=== PATIENT | male | born 1930 | race African-American/Black ===

== ENCOUNTER 2017-04-20 17:57 | Inpatient (IN) | payer MEDICARE, OTHER ==
--- NOTE | ~2017-04-20 | CT72 ---
[facility] A Service of [facility] RADIOLOGY TEXT RESULTS PATIENT: INESSA RAMOS LOCATION: C5 555-01 : 30 UNIT #: [id number] AGE: [address]: Morena Ball MD SEX: M ORDER DR: [id number] [facility] [address] [facility]. [place], [place] [address] [id number] I MR#: [id number] Acc #: [id number] NAME: INESSA RAMOS : 1930 SEX: M STUDY DATE/TIME: 04/20/2017 18:05 UNIT: [facility] ROOM: [facility] STUDY DESCRIPTION: CT Head Wo Contrast Stroke Attending Physician: Morena Ball M.D. Ordering Physician: Ed Doctor [id number] [facility] Primary Care Physician: Primary Care Physician No MEDICAL IMAGING REPORT This report is preliminary unless electronic signature is present EXAM Head CT without contrast HISTORY Left-sided facial droop. Left-sided weakness and confusion, onset today. COMPARISON 11/16/2016. TECHNIQUE Axial images were obtained without contrast. This CT exam was performed with one or more of the following radiation dose reduction techniques: automatic exposure control, adjustment of mA and/or kV according to patient size, and iterative reconstruction. FINDINGS Generalized atrophy is noted. There are mild chronic ischemic changes around ventricles. There is no evidence of mass lesion, hemorrhage or edema. No midline shift is seen. Extraaxial structures are unremarkable. IMPRESSION Atrophy with chronic ischemic changes. No acute findings. Dictated by... Vik Sandoval M.D. THIS IS AN ELECTRONICALLY VERIFIED REPORT Vik Sandoval M.D. at 04/21/2017 4:29 PM RLF/pcl [facility] A Service [facility] RADIOLOGY TEXT RESULTS PATIENT: INESSA RAMOS LOCATION: C5 555-01 : 30 UNIT #: [id number] AGE: [address]: Morena Ball MD SEX: M ORDER DR: TD: 04/20/2017 20:26 JOB #: [id number] MEDICAL IMAGING REPORT Page 1 of 1 COPY
--- NOTE | ~2017-04-20 | DS ---
Unit #: [id number] #: [id number] Patient: INESSA RAMOS [id number] [address] [address] [id number] I MR#: [id number] NAME: INESSA RAMOS ROOM: 215 Age: 86 Sex: M Admission Date: 04/20/2017 : 1930 Discharge Date: Attending Physician: Morena Ball M.D. Primary Care Physician: No Primary Care Physician DISCHARGE SUMMARY DISCHARGE DIAGNOSES 1. Hypertensive crisis with uncontrolled hypertension. 2. Hypertensive encephalopathy. 3. Alzheimer dementia with severe behavioral changes and agitation during hospitalization course. 4. History of orthostatic hypotension and labile hypertension. 5. History of permanent pacemaker. 6. Peripheral vascular disease. 7. Chronic kidney disease, stage 2. 8. Prostate cancer. Previously treated hormonally. 9. Degenerative joint disease. 10. Gastroesophageal reflux disease. 11. History of iron deficiency anemia, chronic. CONSULTATIONS None. PROCEDURES None. DIAGNOSTIC TESTING IMAGING: CT head shows no acute changes. CT angio head and neck shows no evidence of vertebral or carotid dissection. Both carotid bifurcations 65% stenosis. Ultrasound of the extremities negative for DVT. LAB DATA: Sodium 140, potassium 4.5, creatinine 1.1. WBC 5.7, hemoglobin 11.9, platelets 169. ALLERGIES None. DISCHARGE MEDICATIONS 1. Tylenol 650 p.o. t.i.d. p.r.n. 2. Depakote 250 in the morning and 500 at bedtime. 3. Haldol 2 mg q.6 p.r.n. agitation. 4. Colace 200 p.o. b.i.d. 5. MiraLAX 17 grams p.o. daily. 6. Namenda 10 mg p.o. b.i.d. 7. Donepezil 10 mg daily. 8. Estradiol 0.1 mg transdermal every week. 9. Hydralazine 50 mg p.o. t.i.d. Unit #: [id number] #: [id number] Patient: INESSA RAMOS 10. Ferrous gluconate 324 p.o. daily. 11. Arctic Relief 3.5% gel applied topically b.i.d. 12. Aspirin 81 daily. 13. Nitroglycerin 0.4 sublingual p.r.n. chest pain. 14. Vitamin D 2,000 units daily. 15. Artificial Tears q.i.d. HOSPITALIZATION COURSE An 86 year old admitted because of hypertension. Hypertensive crisis with uncontrolled blood pressure. Patient was given IV Vasotec, Cardene drip and IV hydralazine. Currently blood pressure mildly elevated. I am going to increase his hydralazine. Patient needs close monitoring of his vitals at rehab. Mostly the hypertension could be from his agitation. Hypertensive encephalopathy. CAT scan negative for any acute CVA,. Currently resolved back to his baseline according to family. Alzheimer dementia with behavioral changes and agitation. Patient received IM Haldol. Continue with p.o. Haldol as needed secondary to Alzheimer dementia. DISCHARGE PLAN 1. Patient will be discharged to rehab. 2. Patient needs close monitoring of his vitals at rehab for his blood pressure checks. Dictated by... Joaquina Bell/baylee TD: 04/23/2017 10:23 JOB #: [id number] DISCHARGE SUMMARY Page 1 of 1 X Morena Ball MD X DISCHARGE SUMMARY
--- NOTE | ~2017-04-20 | CT24 ---
[facility] A Service of [facility] & [facility] RADIOLOGY TEXT RESULTS PATIENT: INESSA RAMOS LOCATION: [facility] : 30 UNIT #: [id number] AGE: [address]: Amarjit Chen MD SEX: M ORDER DR: [id number] [facility] [address] [facility]. [place], [place] [address] [id number] E MR#: [id number] Acc #: [id number] NAME: INESSA RAMOS : 1930 SEX: M STUDY DATE/TIME: 04/20/2017 18:19 UNIT: [facility] ROOM: STUDY DESCRIPTION: CT Angio Neck Stroke Ordering Physician: Parviz Simons M.D. MEDICAL IMAGING REPORT This report is preliminary unless electronic signature is present EXAM CTA head and neck HISTORY Refer below. FINDINGS Please refer to the CTA head report on the same date for complete details. Dictated by... Vik Bello Jr., M.D. THIS IS AN ELECTRONICALLY VERIFIED REPORT Vik Bello Jr., M.D. at 04/20/2017 10:25 PM ASIA/torrey TD: 04/20/2017 21:38 JOB #: [id number] MEDICAL IMAGING REPORT Page 1 of 1 COPY
--- NOTE | ~2017-04-20 | HP ---
Unit #: [id number] #: [id number] Patient: INESSA RAMOS [id number] [address] [address] [id number] I MR#: [id number] NAME: INESSA RAMOS ROOM: 765[address] Age: 86 Sex: M Admission Date: 04/20/2017 : 1930 Attending Physician: Tonie Lainez M.D. Primary Care Physician: Primary Care Physician No HISTORY AND PHYSICAL CHIEF COMPLAINT Possibly abnormal neuro exam, accelerated hypertension. HISTORY OF PRESENT ILLNESS This pleasant 86-year-old male with orthostatic hypotension and labile hypertension, peripheral vascular disease, dementia, permanent pacemaker insertion, was transferred from [facility] for possibly abnormal neurologic exam. Family is present and states that the patient does have a history of labile blood pressure and orthostatic hypotension, does not usually require antihypertensive medications. I am told that he was well until about 4:30 this afternoon when staff at [facility] felt that he had a right lower facial droop, some right arm weakness, bilateral leg weakness. Apparently, he complained of some shoulder pain as well. He presented to this emergency department at about 6 p.m. and really his neurologic examination at this time is fairly normal for someone with dementia, there is no right facial droop when the patient turned his head. He has equal strength throughout. He was also seen by the neurology nurse practitioner. However, his blood pressure was 210/160. He was given 1.25 mg of IV Vasotec without much improvement, started on a Cardene drip. His family states that he has required ER visits in the past for labile blood pressure but at times his blood pressure also runs low and he does have a history of orthostatic hypotension. In reviewing his MAR from the halfway, he is not taking antihypertensive medications. On a Cardene drip, his current blood pressure is 195/88. PAST MEDICAL HISTORY 1. Orthostatic hypotension and labile hypertension. 2. Permanent pacemaker. Family denies definite CAD. 3. Peripheral vascular disease. 4. Chronic kidney disease. 5. Prostate cancer previously treated hormonally. 6. DJD. 7. GERD. 8. Dementia with behavioral issues. 9. History of anemia. 10. Some sort of abdominal surgery. ALLERGIES No known drug allergies. SHELTER MEDICATIONS Unit #: [id number] #: [id number] Patient: INESSA RAMOS 1. Aspirin 81 mg daily. 2. P.r.n. Tylenol. 3. Ferrous sulfate 325 mg daily. 4. MiraLAX daily. 5. Depakote 250 q.a.m. 6. Depakote 500 mg q.p.m. 7. Namenda 10 mg b.i.d. 8. Stool softener 250 mg daily. 9. Aricept 10 mg h.s. 10. Vitamin D3 2000 units daily. 11. Skin care lotions. 12. Artificial Tears one drop both eyes q.i.d. p.r.n. 13. P.r.n. nitroglycerin. 14. Estradiol 0.1 mg patch each week. SOCIAL HISTORY The patient lives at [facility] under the care of Dr. Higgins. He is essentially a lifelong nonsmoker and does not drink alcohol. FAMILY HISTORY Noncontributory given patient's age. REVIEW OF SYSTEMS Difficult to obtain as patient himself is pleasantly confused. PHYSICAL EXAMINATION VITAL SIGNS: Temperature 97.7, pulse 66, blood pressure 210/160 now down to 195/88, O2 saturation 99% on room air. GENERAL: Pleasantly confused 86-year-old male who currently is in no acute distress. HEENT: Eyes PERRLA. Extraocular muscles are intact. Pharynx edentulous. NECK: Supple without adenopathy or thyromegaly. CHEST: Fairly clear on current exam. HEART: Normal S1, S2 with no definite murmur. ABDOMEN: Bowel sounds are present. Well-healed scar is noted. No hepatosplenomegaly or masses. EXTREMITIES: Mild left leg edema as compared to the right. Diminished pedal pulse on the left as compared to the right but no open sores, etc. NEUROLOGIC: Pleasantly confused. He is oriented to person. He has equal strength throughout. His cranial nerves are intact. DIAGNOSTIC STUDIES LABORATORY: Hematocrit 34.9 which appears to be this patient's baseline, MCV 82.2, normal white count and platelet count. INR 1.1. SMA-7 BUN 25. IMAGING: Head CT with atrophy and small vessel ischemic disease. CTA of head and neck show no cutoff or aneurysm. Plaque disease at both carotid bifurcations resulting in a 65% stenosis left ICA and 40% stenosis right ICA. Short segment approximately 40% stenosis of the mid M1 segment on the left side. CARDIOVASCULAR: EKG ventricular paced rhythm, rate 65. ASSESSMENT 1. Questionably abnormal neurologic exam. No evidence of CVA currently. Patient does have baseline dementia. 2. Accelerated hypertension in patient with labile blood pressures [facility] Unit #: [id number] #: [id number] Patient: INESSA RAMOS has a history of orthostatic hypotension per family. 3. Alzheimer dementia with behavioral issues. 4. Prostate cancer. 5. Status post permanent pacemaker insertion. 6. Chronic anemia. 7. Peripheral vascular disease. 8. Mild left leg edema. 9. Degenerative joint disease. PLAN 1. Gentle blood pressure control as patient has a history of labile blood pressures and orthostatic hypotension. 2. Check venous Dopplers of the legs. 3. Repeat labs in the morning. 4. Obtain prior records from [facility]. 5. Check urinalysis. Dictated by Joaquina Starkey/katarina TD: 04/20/2017 22:51 JOB #: [id number] HISTORY AND PHYSICAL Page 1 of 1 X Tonie Lainez MD X HISTORY AND PHYSICAL
--- NOTE | ~2017-04-20 | CT18 ---
[facility] A Service of [facility] RADIOLOGY TEXT RESULTS PATIENT: INESSA RAMOS LOCATION: [facility] : 30 UNIT #: [id number] AGE: [address]: Amarjit Chen MD SEX: M ORDER DR: [id number] [facility] [address] [facility] [place], [place] [address] [id number] E MR#: [id number] Acc #: [id number] NAME: INESSA RAMOS : 1930 SEX: M STUDY DATE/TIME: 04/20/2017 18:19 UNIT: [facility] ROOM: STUDY DESCRIPTION: CT Angio Head Stroke Ordering Physician: Parviz Simons M.D. MEDICAL IMAGING REPORT This report is preliminary unless electronic signature is present EXAM Head and neck CT angiogram 04/20 INDICATIONS Left-side facial droop. Left-sided weakness. Confusion. Started today. TECHNIQUE Axial images were obtained through the head and neck following IV contrast administration. 3-D reformats were obtained. This CT exam was performed with one or more of the following radiation dose reduction techniques: automatic exposure control, adjustment of mA and/or kV according to patient size, and iterative reconstruction. COMPARISON STUDIES No comparison CTA. FINDINGS There is plaque in both carotid bifurcations. Within the proximal right ICA, there is about 40% stenosis by NASCET criteria due to plaque. Within the proximal left ICA, there is about 65% stenosis by NASCET criteria due to atheromatous plaque. No carotid or vertebral dissection is identified. There is some plaque in both carotid siphons, but no stenosis is seen. Vertebral arteries are widely patent. There are codominant. Intracranially, no aneurysm is seen. There is no vascular malformation and there is no vessel cutoff. Within the mid-M1 segment on the left, there is about 40% short-segment stenosis by NASCET criteria, presumably secondary to some atherosclerotic disease. Overall, the distal M1 and proximal M2 branches on the left side are narrower in caliber than those on the right, presumably due to intracranial atherosclerotic disease. Major dural venous sinuses are patent. The brain demonstrates generalized [facility] A Service of [facility] RADIOLOGY TEXT RESULTS PATIENT: INESSA RAMOS LOCATION: [facility] #: [id number] : 30 UNIT #: [id number] AGE: [address]: Amarjit Chen MD SEX: M ORDER DR: mary. There is diffuse degenerative disease in the cervical spine. IMPRESSION 1. No evidence of vertebral or carotid dissection in the neck. 2. Plaque disease at both carotid bifurcations resulting in a 65% stenosis in the left ICA by NASCET criteria and a 40% stenosis in the right ICA by NASCET criteria. 3. Intracranially, no aneurysm or vessel cutoff is seen. There is no vascular malformation. 4. Short-segment approximately 40% narrowing by NASCET criteria in the mid-M1 segment on the left side. Distal M1 and proximal M2 branches on the left side are of smaller caliber than the similar vessels on the right side. This is presumably on the basis of atherosclerotic disease. Dictated by... Vik Bello Jr., M.D. THIS IS AN ELECTRONICALLY VERIFIED REPORT Vik Bello Jr., M.D. at 04/20/2017 10:24 PM ASIA/torrey TD: 04/20/2017 21:34 JOB #: [id number] MEDICAL IMAGING REPORT Page 1 of 1 COPY
--- NOTE | ~2017-04-20 | US84 ---
[id number] [facility] [address] [facility]. [place], [place] [address] [id number] I MR#: [id number] Acc #: [id number] NAME: INESSA RAMOS : 1930 SEX: M STUDY DATE/TIME: 04/21/2017 7:17 UNIT: [facility] ROOM: [facility] STUDY DESCRIPTION: US LE Veins Complete Camilo Stdy Attending Physician: Morena Ball M.D. Ordering Physician: Ed Doctor [id number] [facility] Primary Care Physician: Primary Care Physician No MEDICAL IMAGING REPORT This report is preliminary unless electronic signature is present EXAM Bilateral lower extremity venous duplex, 04/21/2017 HISTORY Bilateral lower extremity pain and swelling for 2 days. Evaluate for deep vein thrombosis. TECHNIQUE Venous ultrasound examination of both lower extremities was performed using grayscale, spectral Doppler and color flow Doppler imaging. FINDINGS The examination is negative. There is no evidence of deep venous thrombus from the groin to the lower calf bilaterally. Visualized greater saphenous veins are also patent. IMPRESSION Negative examination. No evidence of bilateral lower extremity deep venous thrombosis. Dictated by... Lyndon See M.D. THIS IS AN ELECTRONICALLY VERIFIED REPORT Lyndon See M.D. at 04/21/2017 4:30 PM Josh TD: 04/21/2017 09:30 JOB #: [id number] MEDICAL IMAGING REPORT Page 1 of 1 COPY
--- NOTE | ~2017-04-20 | EKG ---
PATIENT: INESSA RAMOS UNIT #: [id number] Ventricular Rate: 65 BPM Atrial Rate: 75 BPM QRS Duration: 198 ms Q-T Interval: 512 ms QTC Calculation(Bezet): 532 ms Calculated R [place]: -74 degrees Calculated T [place]: 96 degrees Diagnosis Line: Ventricular-paced rhythm Diagnosis Line: Abnormal ECG Diagnosis Line: No previous ECGs available Diagnosis Line: Confirmed by KOBY RAMIRES MD ([id number]) on Diagnosis Line: 04/21/2017 8:34:33 AM INTERPRETING MD: KEYLA BERGERON
[2017-04-20 18:47] LABS: BASOPHIL% 0.8 % (0-2.5); EOSINOPHIL# 0.1 X10e3 (0-0.7); EOSINOPHIL% 2.7 % (0.0-7.0); HEMATOCRIT 34.9 % (38.0-50.0); HEMOGLOBIN 11.2 gm/dL (13.0-16.0); LYMPHOCYTE# 1.4 X10e3 (1.0-3.5); LYMPHOCYTE% 33.6 % (17.0-45.0); MEAN CELL VOLUME 82.2 FL (83-96); MEAN CORPUSCULAR HEMOGLOBIN 26.3 PG (28-34); MEAN CORPUSCULAR HGB CONC 31.9 g/dL (30-36); MEAN PLATELET VOLUME 9.4 FL (6.5-11.5); MONOCYTE# 0.5 X10e3 (0-1.0); MONOCYTE% 12.3 % (3.0-12.0); NEUTROPHIL# 2.1 X10e3 (1.5-7.1); NEUTROPHIL% 50.6 % (40-75); PLATELET COUNT 146 X10e3 (140-420); RED BLOOD COUNT 4.25 X10e (3.90-5.60); WHITE BLOOD COUNT 4.1 X10e3 (4.0-10.5)
[2017-04-20 18:48] LABS: DIFF IND NO
[2017-04-20 18:54] LABS: INR 1.1; PROTHROMBIN TIME (PATIENT) 11.7 SECONDS (9.6-11.5)
[2017-04-20 18:57] LABS: BUN/CREATININE RATIO 27.77; CALCIUM SERUM 8.6 mg/dL (8.4-10.2); CREATININE SERUM 0.9 mg/dL (0.6-1.4); GLOM FILT RATE Estimated 77.1 mL/min (>60); POTASSIUM 3.8 mmol/L (3.5-5.1)
[2017-04-20 20:11] LABS: POC - CREATININE 0.87 mg/dL (0.64-1.27); POC - GFR >60.0 mL/min (>60)
[2017-04-20] MEDS ORDERED: MAPAP ARTHRITI650 M1 PO (21:29)
[2017-04-20] MEDS ORDERED: ASPIRIN81 MG PO (21:29)
[2017-04-20] MEDS ORDERED: FERRO-TIME325 MG PO (21:30)
[2017-04-20] MEDS ORDERED: DIVALPROEX SOD250 MG PO (21:31)
[2017-04-20] MEDS ORDERED: MIRALAX17 GM PO (21:31)
[2017-04-20] MEDS ORDERED: STOOL SOFTENER250 MG PO (21:32)
[2017-04-20] MEDS ORDERED: MEMANTINE HCL10 MG (21:32)
[2017-04-20] MEDS ORDERED: DONEPEZIL HCL10 MG PO (21:33)
[2017-04-20] MEDS ORDERED: VITAMIN D-32000 UNI1 PO (21:33)
[2017-04-20] MEDS ORDERED: ARTIFICIAL TEA1 EACH (21:34)
[2017-04-20] MEDS ORDERED: DIVALPROEX SOD500 M1 PO (21:34)
[2017-04-20] MEDS ORDERED: ARCTIC RELIE113.4 GM (21:34)
[2017-04-20] MEDS ORDERED: NITROGLYCERIN0.4 MG (21:35)
[2017-04-20] MEDS ORDERED: ESTRADIOL1 EAC1 TD (21:36)
[2017-04-21 05:03] LABS: BASOPHIL% 0.8 % (0-2.5); DIFF IND NO; EOSINOPHIL# 0.1 X10e3 (0-0.7); EOSINOPHIL% 1.5 % (0.0-7.0); HEMATOCRIT 37.6 % (38.0-50.0); HEMOGLOBIN 11.8 gm/dL (13.0-16.0); LYMPHOCYTE# 1.2 X10e3 (1.0-3.5); LYMPHOCYTE% 23.9 % (17.0-45.0); MEAN CELL VOLUME 81.6 FL (83-96); MEAN CORPUSCULAR HEMOGLOBIN 25.6 PG (28-34); MEAN CORPUSCULAR HGB CONC 31.4 g/dL (30-36); MEAN PLATELET VOLUME 9.6 FL (6.5-11.5); MONOCYTE# 0.6 X10e3 (0-1.0); MONOCYTE% 11.1 % (3.0-12.0); NEUTROPHIL# 3.2 X10e3 (1.5-7.1); NEUTROPHIL% 62.7 % (40-75); PLATELET COUNT 147 X10e3 (140-420); RED BLOOD COUNT 4.61 X10e (3.90-5.60); RED CELL DISTRIBUTION WIDTH 15.1 % (11.0-15.5); WHITE BLOOD COUNT 5.1 X10e3 (4.0-10.5)
[2017-04-21 06:11] LABS: ALBUMIN SERUM 3.3 g/dL (3.5-5.0); BILIRUBIN,TOTAL 0.7 mg/dL (0.2-2.0); BUN/CREATININE RATIO 25.71; CALCIUM SERUM 8.6 mg/dL (8.4-10.2); CREATININE SERUM 0.7 mg/dL (0.6-1.4); GLOM FILT RATE Estimated 99.1 mL/min (>60); POTASSIUM 3.7 mmol/L (3.5-5.1); PROTEIN TOTAL SERUM 6.4 g/dL (6.0-8.3)
[2017-04-21 06:30] LABS: %MB 3.7 % (0.0-4.0); MB 4.6 ng/ml
[2017-04-22 06:33] LABS: BASOPHIL% 0.4 % (0-2.5); EOSINOPHIL% 0.2 % (0.0-7.0); HEMATOCRIT 37.2 % (38.0-50.0); HEMOGLOBIN 11.9 gm/dL (13.0-16.0); LYMPHOCYTE# 0.6 X10e3 (1.0-3.5); LYMPHOCYTE% 10.9 % (17.0-45.0); MEAN CORPUSCULAR HGB CONC 32.1 g/dL (30-36); MEAN PLATELET VOLUME 8.9 FL (6.5-11.5); MONOCYTE# 0.7 X10e3 (0-1.0); MONOCYTE% 12.5 % (3.0-12.0); NEUTROPHIL# 4.4 X10e3 (1.5-7.1); PLATELET COUNT 169 X10e3 (140-420); RED CELL DISTRIBUTION WIDTH 15.1 % (11.0-15.5); WHITE BLOOD COUNT 5.7 X10e3 (4.0-10.5)
[2017-04-22 06:35] LABS: DIFF IND NO
[2017-04-22 07:02] LABS: BUN/CREATININE RATIO 15.45; CALCIUM SERUM 9.2 mg/dL (8.4-10.2); CREATININE SERUM 1.1 mg/dL (0.6-1.4); GLOM FILT RATE Estimated 70.1 mL/min (>60); POTASSIUM 4.5 mmol/L (3.5-5.1)
== END 2017-04-23 14:00 | DRG 305 ==
LOC: CED 17:57 → CEDOF 22:25 → C5B 22:25 → CEDOF 22:28 → CED 22:28 → CICCU2 22:28 → CEDOF 04-21 00:55 → CICCU2 04-21 00:55 → C5B 04-21 14:47 → CICCU2 04-21 14:47 → C5B 04-21 14:47 → C2A 04-22 13:19
PROVIDERS: Emergency Medicine; Internal Medicine
DX: I16.9 Hypertensive crisis, unspecified (principal); I67.4 Hypertensive encephalopathy; C61 Malignant neoplasm of prostate; G30.9 Alzheimer's disease, unspecified; F02.81 Dementia in other diseases classified elsewhere, unspecified severity, with behavioral disturbance; I12.9 Hypertensive chronic kidney disease with stage 1 through stage 4 chronic kidney disease, or unspecified chronic kidney disease; D53.9 Nutritional anemia, unspecified; N18.2 Chronic kidney disease, stage 2 (mild); Z95.0 Presence of cardiac pacemaker; I73.9 Peripheral vascular disease, unspecified; M19.90 Unspecified osteoarthritis, unspecified site; K21.9 Gastro-esophageal reflux disease without esophagitis; Z79.82 Long term (current) use of aspirin
CPT/HCPCS: 36415; 70450; 70496; 70498; 80048; 80053; 82550; 82553; 82565; 84484; 85025; 85610; 90732; 93005; 93970; 96374; 97116; 97162; 97530; 99291; G0009; G8978-GP; G8979-GP; J0360; J1630; Q9967

== ENCOUNTER 2017-07-14 19:29 | Inpatient (IN) | payer MEDICARE, OTHER ==
[~2017-07-14] VITALS: Ht 188 cm; Wt 60.7 kg
--- NOTE | ~2017-07-14 | OR ---
Unit #: [id number] #: [id number] Patient: INESSA RAMOS [id number] [address] [address] [id number] I MR#: [id number] NAME: INESSA RAMOS ROOM: [facility] Date of Procedure: 07/26/2017 Admission Date: 07/16/2017 Surgeon: Coy Ernandez M.D. : 1930 Attending Physician: Tone Hurst M.D. Primary Care Physician: Primary Care Physician No OPERATIVE REPORT JOB NOTE: CC: PRIMARY CARE PHYSICIAN. PROCEDURE PERFORMED Esophagogastroduodenoscopy with biopsies. INDICATIONS FOR PROCEDURE An 87-year-old severe dementia, difficulty swallowing, has been on Dobbhoff tube feeding, undergoing evaluation for possible PEG tube placement with EGD. MEDICATIONS Monitored anesthesia. POSTOPERATIVE FINDINGS 1. EGD exam completed descending duodenum, there were multiple adenomatous appearing polyps in descending duodenum. Biopsies taken for confirmation. 2. Chronic-appearing gastritis with small superficial ulcers scattered. 3. I could not find a good spot for PEG tube placement by indentation, transillumination, or safe track method. 4. Esophagus was normal. PLAN Continue current treatment. We will have Surgery to evaluate for possibly laparoscopic placement of the G-tube. DESCRIPTION OF PROCEDURE The patient was explained of the procedure risks and benefits along with risks and benefits of anesthesia. He was brought to the endoscopy room. Propofol anesthesia was given. Bite block was placed. The scope was passed down the mouth into esophagus, stomach, duodenum, and distal duodenum. Findings as described. Biopsies taken from the polyps in the duodenum. Several attempts were made for finding a good spot for the PEG tube, however, failed. At this point, we pulled the scope out gently after decompressing the stomach. He tolerated it well. No major complications seen. Dictated by... Joaquina Alexis/abbie Unit #: [id number] #: [id number] Patient: INESSA RAMOS TD: 07/26/2017 21:30 JOB #: [id number] OPERATIVE REPORT Page 1 of 1 X Coy Ernandez MD PROCEDURE OPERATIVE NOTE
--- NOTE | ~2017-07-14 | CR72 ---
[facility] A Service of [facility] RADIOLOGY TEXT RESULTS PATIENT: INESSA RAMOS LOCATION: [facility] : 30 UNIT #: [id number] AGE: [address]: Tone Hurst MD SEX: M ORDER DR: [id number] [facility] [address] [facility]. [place], [place] [address] [id number] I MR#: [id number] Acc #: [id number] NAME: INESSA RAMOS : 1930 SEX: M STUDY DATE/TIME: 07/24/2017 10:35 UNIT: [facility] ROOM: [facility] STUDY DESCRIPTION: CR Chest Single View Portable Attending Physician: Tone Hurst M.D. Ordering Physician: Tone Hurst M.D. Primary Care Physician: No Primary Care Physician MEDICAL IMAGING REPORT This report is preliminary unless electronic signature is present EXAM Portable chest x-ray, 07/24/2017. HISTORY Chest pain. Chest congestion. Short of air. Eight days duration. TECHNIQUE AP, right anterior, oblique views of the chest is presented. COMPARISON 07/23/2017 at 10:55 hours. FINDINGS Flexible feeding tube extends below the diaphragm and off the field of radiograph. Right upper extremity approach PICC, cardiac pacemaker unchanged. Multiple external monitoring leads and wires overlying the patient. Given obliquity, there is likely stable mild cardiac enlargement. The lungs are well inflated. Airspace disease in the right lower lobe. Some areas of relatively dense airspace disease. The right lower lobe findings are more pronounced than on earlier examination and likely represent pneumonia. Given location, correlate with any clinical concern for aspiration. There are patchy and linear densities in the left retrocardiac/infrahilar region. Some of these have improved compared to prior study. No definite pleural effusion and no pneumothorax. The upper lung zones are clear bilaterally. No suspicious nodule. Stable calcified granuloma left upper lung zone. Dictated by... Edgar Huynh M.D. [facility] A Service of [facility] RADIOLOGY TEXT RESULTS PATIENT: INESSA RAMOS LOCATION: [facility] : 30 UNIT #: [id number] AGE: [address]: Tone Hurst MD SEX: M ORDER DR: THIS IS AN ELECTRONICALLY VERIFIED REPORT Edgar Huynh M.D. at 07/25/2017 2:07 PM Sage TD: 07/24/2017 16:51 JOB #: [id number] MEDICAL IMAGING REPORT Page 1 of 1 COPY
--- NOTE | ~2017-07-14 | CR7 ---
[facility] A Service of [facility] & [facility] RADIOLOGY TEXT RESULTS PATIENT: INESSA RAMOS LOCATION: [facility] 337- : 30 UNIT #: [id number] AGE: [address]: Tone uHrst MD SEX: M ORDER DR: [id number] [facility] [address] [facility]. [place], [place] [address] [id number] I MR#: [id number] Acc #: [id number] NAME: INESSA RAMOS : 1930 SEX: M STUDY DATE/TIME: 07/26/2017 15:57 UNIT: [address] ROOM: [facility] STUDY DESCRIPTION: CR Abdomen Single AP View Attending Physician: Tone Hurst M.D. Ordering Physician: Coy Ernandez M.D. Primary Care Physician: Primary Care Physician No MEDICAL IMAGING REPORT This report is preliminary unless electronic signature is present EXAM AP of the abdomen INDICATIONS Dobbhoff tube placement. Compared with earlier today. FINDINGS Tip of the Dobbhoff tube projects over the expected region of the stomach. IMPRESSION Tip of Dobbhoff tube projects over the stomach Dictated by... Sebastián Roa M.D. THIS IS AN ELECTRONICALLY VERIFIED REPORT Sebastián Roa M.D. at 07/27/2017 9:31 AM NICK/lenin TD: 07/26/2017 18:12 JOB #: [id number] MEDICAL IMAGING REPORT Page 1 of 1 COPY
--- NOTE | ~2017-07-14 | XA166 ---
[facility] A Service of [facility] & [facility] RADIOLOGY TEXT RESULTS PATIENT: INESSA RAMOS LOCATION: C3A 337- : 30 UNIT #: [id number] AGE: [address]: Randy Wong MD SEX: M ORDER DR: [id number] [facility] [address] [facility]. [place], [place] [address] [id number] I MR#: [id number] Acc #: [id number] NAME: INESSA RAMOS : 1930 SEX: M STUDY DATE/TIME: 07/18/2017 13:33 UNIT: C3A PCU ROOM: [facility] STUDY DESCRIPTION: XA PICC Line Placement WO Port Attending Physician: Randy Wong M.D. Ordering Physician: Randy Wong M.D. Primary Care Physician: Primary Care Physician No MEDICAL IMAGING REPORT This report is preliminary unless electronic signature is present EXAM PICC line insertion INDICATION IV access. PRE-PROCEDURE The procedure was explained to the patient and/or patient marketing development representative including risks, benefits, potential complications and potential for alternative forms of treatment. Informed consent was obtained, and prior to initiating the procedure a formal timeout procedure was performed. PROCEDURE Using full standard sterile barrier technique, including caps, gowns, gloves, masks, as well as sterile skin preparation with 2% chlorhexadine and standard sterile draping, the right arm was prepped and draped in the usual fashion, and real-time sterile ultrasound guidance was used to localize an arm vein and to confirm vessel patency. A hard copy ultrasound image was recorded. After local anesthesia with 1% Xylocaine, the vein was punctured using real-time sterile ultrasound guidance, and an 0.018 guidewire was advanced into the superior vena cava, using fluoroscopic guidance. A 5 Sierra Leonean double-lumen PICC was then measured at 39 cm and deployed with the tip positioned in the superior vena cava. The position of the line was documented with a radiographic image. The line was secured in place with an adhesive dressing and an antibiotic patch was applied. Total fluoro time was 0.4 minutes. The reference air kerma is 2 mGy. IMPRESSION Successful placement of a 5 Sierra Leonean double-lumen Power PICC via the right arm under ultrasound and fluoroscopic guidance. The tip of the PICC is in good position in the superior vena cava. [facility] A Service of [facility] RADIOLOGY TEXT RESULTS PATIENT: INESSA RAMOS LOCATION: C3A 337-01 : 30 UNIT #: [id number] AGE: [address]: Randy Wong MD SEX: M ORDER DR: Dictated by... Sebastián Roa M.D. THIS IS AN ELECTRONICALLY VERIFIED REPORT Sebastián Roa M.D. at 07/19/2017 5:31 PM NICK/shawanda TD: 07/19/2017 11:21 JOB #: [id number] MEDICAL IMAGING REPORT Page 1 of 1 COPY
--- NOTE | ~2017-07-14 | CT69 ---
[facility] A Service of [facility] & [facility] RADIOLOGY TEXT RESULTS PATIENT: INESSA RAMOS LOCATION: [facility] : 30 UNIT #: [id number] AGE: [address]: Randy Wong MD SEX: M ORDER DR: [id number] [facility] [address] [facility]. [place], [place] [address] [id number] I MR#: [id number] Acc #: [id number] NAME: INESSA RAMOS : 1930 SEX: M STUDY DATE/TIME: 07/18/2017 16:32 UNIT: A PCU ROOM: [facility] STUDY DESCRIPTION: CT Head W Contrast Attending Physician: Randy Wong M.D. Ordering Physician: Randy Wong M.D. Primary Care Physician: Primary Care Physician No MEDICAL IMAGING REPORT This report is preliminary unless electronic signature is present EXAM Head CT with contrast HISTORY Lethargy and confusion, onset today. TECHNIQUE Axial images were obtained with contrast. 100 mL of Isovue was used. This CT exam was performed with one or more of the following radiation dose reduction techniques: automatic exposure control, adjustment of mA and/or kV according to patient size, and iterative reconstruction. COMPARISON STUDIES Previous scan from 04/20/2017. FINDINGS Generalized atrophy is again seen with chronic ischemic changes noted around ventricles. This is unchanged from the previous exam. There is no evidence of mass, hemorrhage or edema. No abnormal enhancement is seen with contrast. Extraaxial structures are unremarkable. IMPRESSION Atrophy with chronic ischemic changes. No change from the previous exam. STAT * RESULT Dictated by... Vik Sandoval M.D. THIS IS AN ELECTRONICALLY VERIFIED REPORT [facility] A Service of [facility] & [facility] RADIOLOGY TEXT RESULTS PATIENT: INESSA RAMOS LOCATION: [facility] : 30 UNIT #: [id number] AGE: [address]: Randy Wong MD SEX: M ORDER DR: Vik Sandoval M.D. at 07/20/2017 7:07 AM RLF/pcl TD: 07/18/2017 16:56 JOB #: [id number] MEDICAL IMAGING REPORT Page 1 of 1 COPY
--- NOTE | ~2017-07-14 | TOC ---
Unit #: [id number] #: [id number] Patient: INESSA TERRY [id number] [address] [address] [id number] I MR#: [id number] NAME: INESSA TERRY ROOM: 337 Age: 87 Sex: M Admission Date: 07/16/2017 : 1930 Attending Physician: Randy Wong M.D. Primary Care Physician: No Primary Care Physician TRANSFER OF CARE SUMMARY PRIMARY DIAGNOSIS Hypertensive encephalopathy. SECONDARY DIAGNOSES 1. Hypertensive emergency. 2. Altered mental status. 3. Dementia. 4. Lethargy. 5. Thrombocytopenia. 6. Iron deficiency anemia. 7. Folate deficiency. 8. Peripheral artery disease. HISTORY OF PRESENT ILLNESS Mr. Inessa Terry is an 87-year-old male who lives in a mcc and reportedly is normally interactive, able to speak to nurses and is normally flirtations and attempting to get out of his wheelchair frequently. He was admitted with worsening mental status and saw Dr. Sethi with Neurology. Patient had carotid ultrasounds and B12, foliate, TSH levels. He was started on additional folate. At that time his initial diagnosis was thought to be hypertensive encephalopathy and his blood pressures were brought under control. However, patient has continued to have worsening lethargy and had to have an NG placed for tube feeds. He had some low level temperature elevations and an abnormal urinalysis and was started on empiric antibiotics. We have attempted to adjust his medications to improve his mental status with limited effect. It is possible that his mental status is development representative of progressive dementia or a hypoactive delirium, especially considering the fact that his listed history of dementia was noted to be severe with behavioral disturbances in the past requiring valproic acid. We have weaned down the valproic acid as well as the Catapres that we initially used to try to treat his blood pressure as we now have an enteral route for blood pressure tablets to be used instead. If the patient is not able to resume an oral diet by Monday, consideration should be made for hospice versus a possible surgically implanted feeding tube at that time. Final discharge summary will be dictated by the hospitalist taking care of the patient on the day of discharge. Dictated by... Randy Wong M.D. Unit #: [id number] #: [id number] Patient: RICHARDINESSA COX/fatmata TD: 07/21/2017 20:05 JOB #: [id number] TRANSFER OF CARE SUMMARY Page 1 of 1 X Randy Wong MD X TRANSFER OF CARE SUMMARY
--- NOTE | ~2017-07-14 | CO ---
Unit #: [id number] #: [id number] Patient: INESSA TERRY [id number] [address] [address] [id number] I MR#: [id number] NAME: INESSA TERRY ROOM: 337 Age: 87 Sex: M Admission Date: 07/16/2017 : 1930 Attending Physician: Tone Hurst M.D. Primary Care Physician: Primary Care Physician No CONSULTATION REPORT HISTORY OF PRESENT ILLNESS Mr. Terry is an 87-year-old white male, who was admitted with altered mental status. This has been felt to be secondary to accelerated hypertension. He had CT scans done on 07/14/2017 and 07/18/2017, which showed no change from March of this year, i.e., no acute stroke. He has remained lethargic. He developed new lower lobe infiltrates on chest x-ray on 07/23/2017, consistent with aspiration. He now has a Dobbhoff feeding tube in place. We have been asked to see. No history is available from the patient. He is currently maintained on the following medications; ferrous gluconate, MiraLAX, Namenda, vitamin D, carboxymethyl cellulose, hydralazine, melatonin, Estraderm, Norvasc, Zestril, Folvite, valproic acid, Catapres, Colace, cefepime. PAST MEDICAL HISTORY Significant for; 1. Hypertension, Alzheimer dementia with severe behavioral changes and agitation, orthostatic hypotension with viable hypertension. 2. Peripheral vascular disease. 3. Permanent pacemaker. 4. Chronic kidney disease, prostate cancer treated with hormonal therapy in the past, degenerative joint disease, GERD, iron deficiency anemia. PAST SURGICAL HISTORY Some sort of abdominal surgery. ALLERGIES None known. FAMILY HISTORY Unknown, unable to get history from the patient. SOCIAL HISTORY Apparently resides at [facility]. Lifelong nonsmoker. No alcohol. REVIEW OF SYSTEMS The patient nonverbal, unable to give history. PHYSICAL EXAMINATION GENERAL: Elderly Afro-Lithuanian male, no distress, lying in bed. Dobbhoff feeding tube in place. He has mittens on. VITAL SIGNS: Blood pressure is 141/76, pulse 68, respiratory rate 16, afebrile, O2 saturation 94%. Weight is recorded at 132. HEENT: Pupils are equal, round, and reactive. Sclerae nonicteric. Atraumatic. Oral cavity looks edentulous. Unit #: [id number] #: [id number] Patient: INESSA TERRY NECK: Stiff but able to turn head. No cervical or supraclavicular lymphadenopathy. Trachea midline. LUNGS: Reveal occasional rhonchi, relatively clear though. CARDIAC: Regular rate and rhythm. Could not appreciate murmur, rub, or gallop. ABDOMEN: Nontender. Bowel sounds present. No hepatosplenomegaly. EXTREMITIES: Without clubbing, cyanosis, or edema. SCDs in place. NEUROLOGIC: He is awake. He does follow commands. He can move his tongue when requested. Moves right arm, left arm, left leg. Does not appear to be moving right leg very much. Can wiggle toes on right. DIAGNOSTIC STUDIES IMAGING STUDIES: Chest x-ray is noted patchy airspace disease in lower lobes, slightly better than the 07/23/2017. On 07/18/2017, there were an x-ray done which showed no acute infiltrate. LABORATORY RESULTS: ABGs; pH 7.51, pCO2 of 40, pO2 of 73 on room air. Chemistries; CO2 was 32, creatinine was 0.8, BUN 24, glucose 87, calcium 8.5, albumin 1.9. White blood cell count 11,600, hematocrit 28.3, platelet count normal. IMPRESSION 1. Likely aspiration pneumonia. 2. Altered mental status. 3. Hypertension. 4. History of Alzheimer dementia with behavioral disorder. 5. Permanent pacemaker. 6. Peripheral artery disease. PLAN Agree with antibiotics for aspiration pneumonia. Alternative feedings per Cammy. DVT prophylaxis. Further TRAVEL MED SURG RN evaluation per Dr. Sethi. We will follow with you. Dictated by... Bello Conroy M.D. CORBY/abbie TD: 07/26/2017 07:05 JOB #: [id number] CONSULTATION REPORT Page 1 of 1 X Bello Conroy MD CONSULTATION REPORT
--- NOTE | ~2017-07-14 | CR6 ---
[facility] A Service of [facility] & [facility] RADIOLOGY TEXT RESULTS PATIENT: INESSA RAMOS LOCATION: [facility] 337- : 30 UNIT #: [id number] AGE: [address]: Randy Wong MD SEX: M ORDER DR: [id number] [facility] [address] [facility]. [place], [place] [address] [id number] I MR#: [id number] Acc #: [id number] NAME: INESSA RAMOS : 1930 SEX: M STUDY DATE/TIME: 07/19/2017 14:55 UNIT: A U ROOM: [facility] STUDY DESCRIPTION: CR Abdomen Portable Sng View Attending Physician: Randy Wong M.D. Ordering Physician: Randy Wong M.D. MEDICAL IMAGING REPORT This report is preliminary unless electronic signature is present EXAM Abdomen 07/19 INDICATIONS Tube placement today. FINDINGS Supine view of the abdomen was obtained. Tip of a flexible feeding tube is present in the body of the stomach. The bowel gas pattern is nonspecific. Dictated by... Vik Bello Jr., M.D. THIS IS AN ELECTRONICALLY VERIFIED REPORT Vik Bello Jr., M.D. at 07/20/2017 4:32 PM RLK/torrey TD: 07/19/2017 17:43 JOB #: [id number] MEDICAL IMAGING REPORT Page 1 of 1 COPY
--- NOTE | ~2017-07-14 | EKG ---
PATIENT: INESSA RAMOS UNIT #: [id number] Ventricular Rate: 68 BPM Atrial Rate: 68 BPM QRS Duration: 190 ms Q-T Interval: 492 ms QTC Calculation(Bezet): 523 ms P Earp: 63 degrees Calculated R Earp: -74 degrees Calculated T Earp: 99 degrees Diagnosis Line: Atrial-sensed ventricular-paced rhythm Diagnosis Line: Abnormal ECG Diagnosis Line: When compared with ECG of 20-APR-2017 18:41, Diagnosis Line: Vent. rate has increased BY 3 BPM Diagnosis Line: Confirmed by CHENCHO LOU MD ([id number]) on Diagnosis Line: 07/16/2017 4:44:33 PM INTERPRETING MD: MERLE
--- NOTE | ~2017-07-14 | CR63 ---
[facility] A Service of [facility] & [facility] RADIOLOGY TEXT RESULTS PATIENT: INESSA RAMOS LOCATION: [facility] 337- : 30 UNIT #: [id number] AGE: [address]: Tone Hurst MD SEX: M ORDER DR: [id number] [facility] [address] [facility]. [place], [place] [address] [id number] I MR#: [id number] Acc #: [id number] NAME: INESSA RAMOS : 1930 SEX: M STUDY DATE/TIME: 07/28/2017 7:21 UNIT: A U ROOM: [facility] STUDY DESCRIPTION: CR Chest 2 View Attending Physician: Tone Hurst M.D. Ordering Physician: Bello Conroy M.D. Primary Care Physician: Primary Care Physician No MEDICAL IMAGING REPORT This report is preliminary unless electronic signature is present EXAM PA and lateral chest INDICATION Shortness of breath for 11 days. COMPARISON 07/24/2017. FINDINGS Improvement in the appearance of the chest with decreased infiltrate within the right base. No new infiltrates. Heart size stable. Stable PICC line. Degenerative changes thoracic spine. IMPRESSION Improved appearance of the chest with decreased infiltrate in the right base. Continued follow up to clearing is recommended. Dictated by... Sebastián Roa M.D. THIS IS AN ELECTRONICALLY VERIFIED REPORT Sebastián Roa M.D. at 08/01/2017 7:20 AM NICK/shawanda TD: 07/28/2017 08:27 JOB #: [id number] MEDICAL IMAGING REPORT Page 1 of 1 COPY
--- NOTE | ~2017-07-14 | CR7 ---
[facility] A Service of [facility] RADIOLOGY TEXT RESULTS PATIENT: INESSA RAMOS LOCATION: C3A : 30 UNIT #: [id number] AGE: [address]: Tone Hurst MD SEX: M ORDER DR: [id number] [facility] [address] [facility]. [place], [place] [address] [id number] I MR#: [id number] Acc #: [id number] NAME: INESSA RAMOS : 1930 SEX: M STUDY DATE/TIME: 07/26/2017 12:52 UNIT: C3A PCU ROOM: [facility] STUDY DESCRIPTION: CR Abdomen Single AP View Attending Physician: Tone Hurst M.D. Ordering Physician: Coy Ernandez M.D. Primary Care Physician: No Primary Care Physician MEDICAL IMAGING REPORT This report is preliminary unless electronic signature is present EXAM Abdomen one-view 07/26/2017 12:52 hours HISTORY Tube placement today, abdominal pain with nausea today. COMPARISON 07/19/2017 FINDINGS Supine view of the abdomen demonstrates pacer wires over the right atrium and right ventricle. No enteric tube is visualized. Previous Dobbhoff tube is no longer seen. There is gaseous distension of multiple loops of small bowel with gas throughout the colon. No definite obstruction. No supine evidence of free air. IMPRESSION 1. No enteric tube is visualized. 2. There is increased gas within loops of small bowel and colon diffusely. The quantity of gas is increased. There is no definite obstruction or distension. Dictated by... Stella Chapman M.D. THIS IS AN ELECTRONICALLY VERIFIED REPORT Stella Chapman M.D. at 07/26/2017 2:32 PM ADRIANA/soo TD: 07/26/2017 14:05 JOB #: [id number] [facility] A Service of [facility] RADIOLOGY TEXT RESULTS PATIENT: INESSA RAMOS LOCATION: C3A : 30 UNIT #: [id number] AGE: [address]: Tone Hurst MD SEX: M ORDER DR: MEDICAL IMAGING REPORT Page 1 of 1 COPY
--- NOTE | ~2017-07-14 | CO ---
Unit #: [id number] #: [id number] Patient: INESSA RAMOS [id number] [address] [address] [id number] I MR#: [id number] NAME: INESSA RAMOS ROOM: 337 Age: 87 Sex: M Admission Date: 07/16/2017 : 1930 Attending Physician: Tone Hurst M.D. Primary Care Physician: No Primary Care Physician Consultation Date: 07/26/2017 CONSULTATION REPORT REASON FOR CONSULTATION Need for gastrostomy tube. HISTORY OF PRESENT ILLNESS Thank you very much for asking us to see Mr. Ramos. He is an 87-year-old black male who was admitted with hypertensive encephalopathy. He is in a prison. He has a history of hypertension, Alzheimer dementia, severe behavioral changes and agitation and history of permanent pacemaker. He requires bypass feeds and nutritional support. He was seen by Dr. Ernandez who attempted PEG tube placement; however, there was not a proper location for this due to his previous abdominal surgery. We are asked to see him at this time for open gastrostomy tube. PAST MEDICAL HISTORY Hypertension, dementia, peripheral vascular disease, degenerative joint disease, GERD, iron deficiency anemia, history of prostate cancer and multiple upper abdominal surgeries of an unknown type. ALLERGIES No known medical allergies. SOCIAL HISTORY No tobacco or alcohol use. FAMILY HISTORY Noncontributory. MEDICATIONS Please see med/rec sheet. IMMUNIZATION STATUS Unknown. PHYSICAL EXAMINATION GENERAL: Thin black male in mittens who is somewhat contracted and appears mildly agitated. BACK: No obvious CVA or spinous tenderness. ABDOMEN: Flat. Soft. Nontender. There is an upper midline incision, as well as a left subcostal incision and, what looks like, either a previous G-tube or drain placement. DIAGNOSTIC STUDIES LABORATORY STUDIES: His CMP shows normal liver function studies and electrolytes. PT, PTT were normal on admission. White count is 11.1 with a Unit #: [id number] #: [id number] Patient: INESSA RAMOS hemoglobin of 9.1, hematocrit 27.7, MCV of 78, platelet count 178,000. IMPRESSION Ctmvbe-csxgi-vqbu-old black male with multiple medical problems with the need for bypass feeds and nutritional support. We spoke with his daughter, Lyndsey Forbes, per telephone. We had a long conversation regarding what a PEG tube is, as well as open gastrostomy tube, and we discussed all the risks and benefits of the above, including the risk of bleeding, infection, perforation, need for a ventilator, transfer, and other risks. The daughter knows that, due to his previous upper abdominal surgery, it might be quite an extensive process and problem to place a gastrostomy tube. In addition, he has a tendency to grab and pull on tubes and is in mittens and restraints at this time. It is possible it could be pulled out or dislodged. All this has been fully explained to the patient's daughter in detail. We have also discussed possibly Hospice and no nutritional support or tube placement. She wants to discuss this with her family and will let us know tomorrow her decision. We will have Dr. Schwartz of cardiology see the patient for cardiac clearance in case they wish to proceed. Dictated by... Joaquina Ozuna/baylee TD: 07/27/2017 11:02 JOB #: [id number] CONSULTATION REPORT Page 1 of 1 X Rodo Osman MD X CONSULTATION REPORT
--- NOTE | ~2017-07-14 | CT72 ---
[facility] A Service of [facility] RADIOLOGY TEXT RESULTS PATIENT: INESSA RAMOS LOCATION: [facility] 337- : 30 UNIT #: [id number] AGE: [address]: Kwaku Haddad MD SEX: M ORDER DR: [id number] [facility] [address]. [place], [place] [address] [id number] I MR#: [id number] Acc #: [id number] NAME: INESSA RAMOS : 1930 SEX: M STUDY DATE/TIME: 07/14/2017 19:42 UNIT: C3A PCU ROOM: [facility] STUDY DESCRIPTION: CT Head Wo Contrast Stroke Attending Physician: Kwaku Haddad M.D. Ordering Physician: Alejandro Bunch M.D. Primary Care Physician: Primary Care Physician No MEDICAL IMAGING REPORT This report is preliminary unless electronic signature is present EXAM CT head without contrast, 07/14/2017 HISTORY 87-year-old male half-way patient. Staff noted the patient was drooling and leaning toward the left today with left side body weakness and facial drooping. Symptoms began today. COMPARISON Noncontrast CT head, 04/20/2017. TECHNIQUE This CT exam was performed with one or more of the following radiation dose reduction techniques: automatic exposure control, adjustment of mA and/or kV according to patient size, and iterative reconstruction. FINDINGS Moderately advanced parenchymal atrophy with compensatory prominence of the ventricles and extraaxial spaces, similar to prior. Scattered hypodensities in the deep white matter of the brain are nonspecific but favored to represent changes of chronic microvascular disease and appears similar to prior study. Elizabeth matter-white matter junction distinction appears preserved without evidence of acute or evolving infarct. No mass lesion, mass effect, midline shift or intracranial hemorrhage is seen. Minor paranasal sinus mucosal thickening. Mastoid air cells are clear. No calvarial abnormality. IMPRESSION Moderate generalized atrophy and scattered chronic microvascular disease changes. No acute findings, and no significant change compared to 04/20/2017. Dictated by... [facility] A Service of [facility] RADIOLOGY TEXT RESULTS PATIENT: INESSA RAMOS LOCATION: [facility] 337-01 : 30 UNIT #: [id number] AGE: [address]: Kwaku Haddad MD SEX: M ORDER DR: Yulia Spencer M.D. THIS IS AN ELECTRONICALLY VERIFIED REPORT Yulia Spencer M.D. at 07/15/2017 1:55 PM Paige TD: 07/15/2017 10:27 JOB #: [id number] MEDICAL IMAGING REPORT Page 1 of 1 COPY
--- NOTE | ~2017-07-14 | FU ---
[facility] Nutrition Therapy DATE: 07/25/17 Patient: INESSA RAMOS Physician: STAR Address: [address] Room/Bed: [address] [place] [address], Zip: [place] [address] Admit Date: 07/16/17 Date of : 30 Height: 6 2 Weight: 132 60.1 NUTRITION MONITORING/FOLLOW-UP: Reason: Enteral nutrition follow-up Admitting dx: 87 y/o male admitted with AMS and uncontrolled HTN from intermediate Anthropometrics: Ht: 74", admission wt: 130 vs 153 lbs (avg 64.3 kg), current wt: 60.1 kg, BMI: 17 (underweight; based on current wt) Labs: BUN 24, glucose POC 98 Meds: Folic acid, mgso4, kcl, nacl GI: BM 07/21, DHT in place Skin: Issues noted, generalized edema BLE Re-estimated Nutrition Needs: 1104-9406 kcals/day (30-35 kcals/kg CBW) 60-72 g protein/day (1-1.2 g/kg CBW) Fluids consistent with kcal needs or per MD Assessment: Chart reviewed, events noted. Patient failed STONECUTTER ASSISTANT eval and is not appropriate for PO intake. EN was started on 07/20 per recs, however there is not much documentation regarding what his daily EN rates have been. Jevity 1.5 documented to be running at 40 ml/hr on 07/22, however EN is off at this time (since yesterday, 07/24) because the family is trying to decide on a PEG tube placement vs hosparus. The patient is on 2L nasal cannula, is confused and not following commands. See nutrition dx, goals and recs as stated below. Will continue to follow. Dx: Inadequate oral intake r/t dementia, AMS AEB no PO intake, need for STONECUTTER ASSISTANT eval - RESOLVED New nutrition dx: Inadequate enteral nutrition infusion r/t pending goals of care AEB EN off since 07/24. Intervention: See recs below Monitoring, Evaluation and Goals: 1. PO diet advancement vs nutrition support consistent with estimated needs - NOT MET (PO diet advancement no longer relevant, pt to remain NPO, EN currently off) 2. Maintain current weight status - MET AT THIS TIME [facility] Nutrition Therapy DATE: 07/25/17 Patient: INESSA RAMOS Physician: STAR Address: [address] [place] [address] DRIVE Room/Bed: [address] [place] [address], Zip: [place] [address] Admit Date: 07/16/17 Date of : 30 Height: 6 2 Weight: 132 60.1 3. Promote regular BM's - IN PROGRESS (last BM documented as 07/21) No new goals Monitor: per protocol, criteria to determine if above goals met Recommendations: 1. If consistent with the patient's goals of care suggest placing PEG tube and restarting enteral nutrition with Jevity 1.5 @ 20 ml/hr and increase by 10 ml q 8 hours until goal rate of 50 ml/hr is reached, to meet 100% of the patient's estimated nutrition needs. He is to remain NPO. 2. If the patient is transferred to hospice care we will follow-up as appropriate. 3. Please weigh q 3 days for monitoring purposes. 4. Consider adding a bowel regimen per MD if appropriate to promote regular BM's. Status: Moderate nutrition risk Respectfully, Amna Borrero, JUICE, LD Food and Nutritional Services [facility] cc: client file
--- NOTE | ~2017-07-14 | CO ---
Unit #: [id number] #: [id number] Patient: INESSA RAMOS [id number] [place], [place] [address] [id number] I MR#: [id number] NAME: INESSA RAMOS ROOM: 337 Age: 87 Sex: M Admission Date: 07/16/2017 : 1930 Attending Physician: Randy Wong M.D. Primary Care Physician: Primary Care Physician No CONSULTATION REPORT REASON FOR CONSULTATION Mental status changes. PATIENT IDENTIFICATION This is an 87-year-old right-handed Afro-Vietnamese male who is evaluated in room 337. SOURCE OF INFORMATION Essentially the medical records. PROBLEM LIST 1. This gentleman was admitted from 04/20/2017 to 04/23/2017 for something similar. 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 2. He has Alzheimer dementia with severe behavioral changes and agitation. 3. History of orthostatic hypotension and labile hypertension. 4. History of permanent pacemaker. 5. Peripheral vascular disease. 6. Chronic kidney disease stage 2. 7. Prostate cancer, previously treated hormonally. 8. Degenerative joint disease. 9. Gastroesophageal reflux disease. 10. History of iron deficiency anemia. HISTORY OF PRESENT ILLNESS This is an 87-year-old gentleman who actually admitted several months ago for something similar and he was diagnosed with possible hypertensive encephalopathy. He presented again yesterday and it for something exactly similar. He was not communicating, but nothing else was seen. The ER physician called me and we discussed whether it will be appropriate to use code stroke, but since there was nothing else focal and he seemed to be responding, it was decided to observe him. His blood pressure was as high as 174 to 198 systolic and 89 to 101 diastolic. Looking into the previous pictures, he had again done something similar. Now, he is more awake. He is alert. He knows himself. Beyond that, his cognitive condition is not very known to me. He can name. He is moving all extremities. He is from [facility]. He cannot have an MRI. CT did not show anything different as compared to previous studies. CTA was not done because of issue of chronic renal problem. PAST MEDICAL HISTORY Unit #: [id number] #: [id number] Patient: INESSA RAMOS As discussed above. PAST SURGICAL HISTORY As discussed above. ALLERGIES None known to us. HOME MEDICATIONS 1. Aspirin. 2. Mapap Arthritis Pain. 3. Jaime-Time. 4. MiraLAX. 5. Divalproex. 6. Sodium. 7. Memantine. 8. Stool softener. 9. Donepezil. 10. Vitamin D3. 11. Artificial Tears. 12. Nitroglycerin as needed. 13. Estradiol. FAMILY HISTORY Noncontributory secondary to the patient's age. SOCIAL HISTORY The patient lives at [facility] in the care of Dr. Higgins. Lifetime nonsmoker, nondrinker. REVIEW OF SYSTEMS Could not be obtained because of his current cognitive condition and I am not sure how his baseline is. PHYSICAL EXAMINATION VITAL SIGNS: Temperature 98.3, pulse 58, respirations 16, blood pressure 157/80, and O2 saturations 100%. Weight of 153 pounds. BMI was 19. NEUROLOGIC: The patient is seemed to be alert. He knows his name. He says he is here when I asking where he was, he is not oriented to time. He can name a few simple objects. He was frustrated. He wanted to eat. He did not really cooperate with me. Cranial nerve examination does respond to threats in the primary lam. Eye movements seemed to be conjugate. I did not see any ptosis. I did not see any nystagmus. Extraocular movements seemed to be spontaneously intact. Hearing seemed to be intact. Tongue was midline. I could not visualize oropharynx or uvula. Head turning was spontaneous. No meningismus was seen. I could not examine his uvula. On motor examination, he is moving all extremities. Strength of at least 4/5. Sensory examination intact for soft touch and pain sensation. No extinction was seen. Romberg was not evaluated. Gait examination was deferred. Unit #: [id number] #: [id number] Patient: INESSA RAMOS I could not get any reflexes. Toes are mute. DIAGNOSTIC STUDIES LABORATORY RESULTS: Random glucose 78 to 99, calcium was 8.1, albumin was 2.9. Valproic acid level was 91. White count was 4.7, hemoglobin and hematocrit of 10.8 and 32.6, and platelet count was 123. Urinalysis was unremarkable. Head CT was as discussed. IMPRESSION This is a very interesting 87-year-old gentleman with history of severe cognitive changes and Alzheimer dementia on multiple medications and he was here several months ago with similar problem with hypertensive encephalopathy and he is exactly behaving the same way. When the blood pressure is better, he is better. I will observe him. I would not start anything different. He is already on aspirin. I will check his carotid ultrasound. If it is okay, I will check his other labs and observe him and he can be discharged. If it is abnormal, we will evaluate and treat as indicated, but I doubt this is a stroke or transient ischemic attack, though with his age, the risk factors are there. With this cognitive changes, it does not take much to disturb his balance and I will see how things go. I will keep you informed and if he is otherwise stable, he may be discharged to have workup done as outpatient. Dictated by... Joaquina Mo/abbie TD: 07/16/2017 09:15 JOB #: [id number] CONSULTATION REPORT Page 1 of 1 X Carmelo Sethi MD CONSULTATION REPORT
--- NOTE | ~2017-07-14 | FU ---
[facility] Nutrition Therapy DATE: 07/28/17 Patient: INESSA RAMOS Physician: STAR Address: [address] [place] [address] DRIVE Room/Bed: [address] [place] [address], Zip: [place] [address] Admit Date: 07/16/17 Date of : 30 Height: 6 2 Weight: 129 58.9 NUTRITION MONITORING/FOLLOW-UP: Reason: NUTRITION FOLLOW UP Anthropometrics: Ht: 74" wt: 60.1 kg BMI: 17.0 Wt 07/28: 58.9 kg Labs: Na+ 134 (07/27) Gluc POC 88-145 Meds: D5% + NaCl, folic acid, KCl, MgSO4 I&O's: , last BM 07/24 Skin: reviewed Edema: none noted Estimated Nutrition Needs: 4485-7712 kcals (30-35 kcals/kg) 60-72 grams protein (1-1.2 grams/kg) Diet: NPO Assessment: Chart reviewed, events noted. Pt remains NPO d/t [employer] recommendations. Pt went for PEG placement today and stomach was not amenable to PEG (dense adhesions per MD note), therefore, J-tube was place. Pt also had ex-lap and ALISHA. Per RN report, EN will not be resumed until at least tomorrow. Pt has not received nutrition for several days d/t being NPO for potential PEG placement, and awaiting family decision. Pt to return to [place] likely in 1-2 days per MD note. See recommendations below. Dx: Inadequate EN infusion RT pt NPO for procedure and pending family decision AEB pt not consistently receiving EN since 07/24- ACTIVE Intervention: 1. J-tube 2. Resume EN Monitor, eval and goals: 1. Enteral nutrition; provide >80% goal volume x 24 hrs once at goal rate 2. Maintain weight; NOT MET 3. GI; promote regular GI function [facility] Nutrition Therapy DATE: 07/28/17 Patient: INESSA RAMOS Physician: STAR Address: [address] [place] [address] DRIVE Room/Bed: [address] [place] [address], Zip: [place] [address] Admit Date: 07/16/17 Date of : 30 Height: 6 2 Weight: 129 58.9 Recommendations: 1. Once medically feasible, start enteral nutrition with Jevity 1.5 @ 20 mL/hr. Increase by 10 mL q 8 hrs as tolerated to goal of 50 ml/hr. This will meet 100% of the pt's nutrient needs by providin kcals /77 grams protein /912 mL free H20 -HLIVF and add 250 mL free H20 flushes q 6 hrs once EN at goal rate (or per MD orders) 2. Optimize the pt's bowel regimen. 3. Please weigh q 2 days for monitoring purposes. Status: Pt is at moderate nutritional risk. RD will continue to follow up per protocol. Respectfully, CHAU ALBARRAN RD, LD Food and Nutritional Services [facility] cc: client file
--- NOTE | ~2017-07-14 | CO ---
Unit #: [id number] #: [id number] Patient: INESSA RAMOS [id number] [address] [id number] I MR#: [id number] NAME: INESSA RAMOS ROOM: 337 Age: 87 Sex: M Admission Date: 07/16/2017 : 1930 Attending Physician: Tone Hurst M.D. Primary Care Physician: Primary Care Physician No Consultation Date: 07/26/2017 CONSULTATION REPORT REASON FOR CONSULTATION Preoperative evaluation. HISTORY OF PRESENT ILLNESS This is an 87-year-old male, who was [facility] because of altered mental status. During the course of his stay, he was found to have what they felt was hypertensive encephalopathy. Blood pressure on admission was as high as 184/107 mmHg. He has been treated for aspiration pneumonia. He needed an NG tube placed for bypass feedings, but was unable to place PEG tube. He now needs open gastrostomy tube for which Cardiology has been consulted for preoperative evaluation. The patient is unable to provide a history because of dementia. When speaking to the by phone, she states that the patient has been on the decline for the past 4 months. He previously was walking 4 to 5 months ago, but because of weakness and frequent falls, he has been wheelchair bound. It was also decline in his communication where sometimes he does not speak. She has not noted him to have any shortness of breath or lower extremity edema. There has been no report of chest pain. He does have a history of permanent pacemaker that has been checked by [facility] professor of art. Pacemaker was placed 10 years ago, but there has been no history of myocardial infarction or cardiac catheterization. There has been a fluctuation of his blood pressure, where he has been labile. PAST MEDICAL HISTORY 1. Labile hypertension. 2. Orthostatic hypotension. 3. Permanent pacemaker. 4. Peripheral vascular disease. 5. Chronic kidney disease. 6. GERD. 7. Prostate cancer. 8. Anemia. 9. Dementia. 10. Wheelchair bound. 11. Lifelong nonsmoker. 12. [facility] resident. PAST SURGICAL HISTORY Abdominal surgery. Unit #: [id number] #: [id number] Patient: INESSA RAMOS SOCIAL HISTORY The patient resides in a penitentiary. He has never smoked according to the . There is no illicit drug or alcohol use. FAMILY HISTORY Noncontributory. ALLERGIES Penicillin. MEDICATIONS [facility] medications; Namenda 10 mg b.i.d., docusate sodium 100 mg b.i.d., Aricept 10 mg q.h.s., vitamin D3 2000 units daily, divalproex 500 mg b.i.d., aspirin 81 mg daily, acetaminophen 650 mg t.i.d., ferrous sulfate 325 mg daily, MiraLAX 17 g daily, hydroxyzine 25 mg q.6 hours p.r.n., Artificial Tears q.i.d., nitroglycerin p.r.n., estradiol 1 transdermal patch weekly, hydralazine 25 mg t.i.d., melatonin 2 tablets q.h.s. REVIEW OF SYSTEMS Unable to obtain because of the patient's dementia. PHYSICAL EXAMINATION VITAL SIGNS: Blood pressure 144/88, heart rate 71, temperature 97.4. GENERAL: This is an 87-year-old elderly male, who is in no acute distress. NEUROLOGIC: His eyes open, but does not attempt to communicate. Moves all extremities. NECK: Trachea is midline. No thyromegaly or lymphadenopathy. No jugular venous distention. HEART: S1 and S2. Heart sounds are normal. No murmurs, rubs, or clicks. Regular rate and rhythm. LUNGS: Diminished breath sounds with poor inspiratory effort. No rhonchi, rales, or wheezing. ABDOMEN: Soft and nontender with bowel sounds are present. EXTREMITIES: Without leg edema. SKIN: Warm and dry. DIAGNOSTIC STUDIES LABORATORY RESULTS: Glucose 80, BUN 22, creatinine 0.8, sodium 135, potassium 3.8, magnesium 1.9. TSH 2.76. Troponin less than 0.05. White count 11.1, hemoglobin 9.1, hematocrit 27.7, platelet count is 178. IMAGING STUDIES: Chest x-ray shows airspace disease in the right lower lobe. CARDIOVASCULAR STUDIES: EKG shows ventricularly paced rhythm. IMPRESSION 1. Altered mental status. 2. Aspiration pneumonia. 3. Hypertensive encephalopathy. 4. Dysphasia. 5. Permanent pacemaker. 6. Hypertension. 7. Dementia. PLAN Unit #: [id number] #: [id number] Patient: INESSA RAMOS 1. Cardiology was consulted for preoperative evaluation for open gastrostomy tube placement. The patient has been well up until about 4 months ago. He used to ambulate without any chest pain. He is not in heart failure on examination. His vital signs are stable. 2. The patient is okay to undergo surgery at moderate, but acceptable risk. This was discussed with the per phone and she is going to decide upon surgery. 3. We will follow the patient with you. Thank you for allowing us to assist in this patient's care. Dictated by... Leon Vaca/abbie TD: 07/28/2017 14:07 JOB #: [id number] CONSULTATION REPORT Page 1 of 1 X Gibran Campbell APRN X CONSULTATION REPORT
--- NOTE | ~2017-07-14 | CR72 ---
[facility] A Service of [facility] RADIOLOGY TEXT RESULTS PATIENT: INESSA RAMOS LOCATION: C3A 337- : 30 UNIT #: [id number] AGE: [address]: Tone Hurst MD SEX: M ORDER DR: [id number] [facility] [address] [facility]. [place], [place] [address] [id number] I MR#: [id number] Acc #: [id number] NAME: INESSA RAMOS : 1930 SEX: M STUDY DATE/TIME: 07/23/2017 10:55 UNIT: C3A PCU ROOM: [facility] STUDY DESCRIPTION: CR Chest Single View Portable Attending Physician: Tone Hurst M.D. Ordering Physician: Tone Hurst M.D. Primary Care Physician: Primary Care Physician No MEDICAL IMAGING REPORT This report is preliminary unless electronic signature is present EXAM Portable AP view of the chest COMPARISON July 18, 2017, November 23, 2016. INDICATION 87-year-old male with dyspnea for 1 week and chest pain for 1 day. FINDINGS New right arm PICC is noted with the tip terminating in the SVC. Dual lead left chest pacemaker device appears stable. Cardiomediastinal silhouette is within normal limits allowing for portable technique and patient rotation. There appear to be increased bibasilar opacities, most concerning for pneumonia in the right lung base, and possibly reflecting atelectasis and/or pleural effusion in the left lower chest. No evidence of pneumothorax. There has been placement of a feeding tube not traced below the level of the body of the stomach where it passes off the bottom aspect of the image. IMPRESSION 1. Increasing bibasilar opacities possibly reflecting atelectasis in the left lung base but concerning for pneumonia on the right. There may be a developing small left pleural effusion. 2. Interval placement of a right PICC which is adequately positioned. New feeding tube not traced below the level of the stomach. Dictated by... Serg Keys M.D. THIS IS AN ELECTRONICALLY VERIFIED REPORT Serg Keys M.D. at 07/27/2017 11:59 AM [facility] A Service of [facility] RADIOLOGY TEXT RESULTS PATIENT: INESSA RAMOS LOCATION: A 337-01 : 30 UNIT #: [id number] AGE: [address]: Tone Hurst MD SEX: M ORDER DR: EUGENE/shawanda TD: 07/24/2017 08:24 JOB #: [id number] MEDICAL IMAGING REPORT Page 1 of 1 COPY
--- NOTE | ~2017-07-14 | DS ---
Unit #: [id number] #: [id number] Patient: INESSA RAMOS [id number] [place], [place] [address] [id number] I MR#: [id number] NAME: INESSA RAMOS ROOM: 337 Age: 87 Sex: M Admission Date: 07/16/2017 : 1930 Discharge Date: 07/30/2017 Attending Physician: Tone Hurst M.D. Primary Care Physician: No Primary Care Physician DISCHARGE SUMMARY REASON FOR ADMISSION Hypertensive encephalopathy. HISTORY OF PRESENT ILLNESS/HOSPITAL COURSE Patient is a very unfortunate 87-year-old male who is a long-term resident of a senior care, presented secondary to decreased mental status and/or mental status change. Initially his blood pressure was elevated. It was felt as though his encephalopathy was secondary to elevated blood pressure. Once this was controlled, his encephalopathy did not resolve, We placed consultations to neurology services, psychiatric services as well. No acute etiology was found. Appropriate infectious workup was conducted. Blood cultures were negative. Urinalysis also was negative. We consulted speech therapy secondary to decreased mental status. They recommended NPO status as it appears that his overall status was declining. We placed consultation to both Dr. Ernandez as well as Dr. Osman. Dr. Ernandez performed an upper GI endoscopy, was unable to perform and/or place a PEG tube secondary to anatomy as well as prior surgeries. Therefore, LSA was consulted. Patient underwent open J-tube placement. Tube feeds have now been initiated and, if patient tolerates over the next 24 hours, patient will be transitioned back to senior care for long-term care. Overall, it seems likely that his encephalopathy is a component of acute delirium on dementia and that his dementia has now progressed. He appears to be actively declining although laboratory studies are within normal limits. At this point in time, hospice should be considered. I have discussed it with the family in detail. They wish to continue tube feeds as well as they wish to wait for patient to return back to his baseline which, in my opinion, may not clinically happen. Hospice services may be considered over the next few weeks if patient does not return to baseline status as per family. FINAL DISCHARGE DIAGNOSES 1. Acute delirium on baseline dementia. 2. Hypertensive emergency on admission, now resolved. 3. Dementia, multifactorial in origin. 4. Chronic immobility syndrome, essentially patient bedbound. Unit #: [id number] #: [id number] Patient: INESSA RAMOS 5. Iron deficiency anemia. 6. Folate deficiency. 7. Peripheral arterial disease. FINAL DISCHARGE MEDICATIONS 1. Tylenol 650 mg feeding tube q.4 p.r.n. 2. Valproic acid 250 mg b.i.d. 3. Norvasc 5 mg q. a.m. 4. Catapres 0.1 mg topical Monday. 5. Estraderm topical Monday. 6. Hydralazine 25 mg t.i.d. 7. Lisinopril 2.5 mg daily. 8. Folic acid 1 mg daily. 9. Sublingual nitro as directed. DISCHARGE CONDITION Stable. DISCHARGE DISPOSITION Back to senior care. Long-term prognosis of this patient poor. DNR status has been reaffirmed with family members prior to discharge. Dictated by... Joaquina Meyer/omar TD: 07/30/2017 10:20 JOB #: [id number] DISCHARGE SUMMARY Page 1 of 1 X Tone Hurst MD X DISCHARGE SUMMARY
--- NOTE | ~2017-07-14 | US37 ---
[facility] A Service of [facility] RADIOLOGY TEXT RESULTS PATIENT: INESSA RAMOS LOCATION: [facility] 337 : 30 UNIT #: [id number] AGE: [address]: Steven Tejada MD SEX: M ORDER DR: [id number] [facility] [address] [facility]. [place], [place] [address] [id number] I MR#: [id number] Acc #: [id number] NAME: INESSA RAMOS : 1930 SEX: M STUDY DATE/TIME: 07/16/2017 9:55 UNIT: [address] ROOM: [facility] STUDY DESCRIPTION: US Carotid W/Doppler Bilateral Attending Physician: Steven Tejada M.D. Ordering Physician: Carmelo Sethi M.D. Primary Care Physician: Primary Care Physician No MEDICAL IMAGING REPORT This report is preliminary unless electronic signature is present EXAM Carotid Doppler ultrasound HISTORY Confusion and memory loss. Heart disease. Fainting spells. FINDINGS The patient was unable to cooperate fully. This made the exam difficult. The carotid bifurcations and vertebral arteries were evaluated with nelson-scale imaging, color flow Doppler imaging. NASCET criteria was utilized. Plaque is present throughout the carotid bulb and proximal ICAs bilaterally. Peak systolic flow in the CCA is 0.54 m/sec and in the right ICA it is 1.35 m/sec. Peak systolic flow in the left CCA is 1.30 m/sec and in the left ICA it is 1.5 m/sec. The vertebral arteries have antegrade flow. IMPRESSION 1. There are elevated flow velocities bilaterally in the internal carotid arteries suggesting a stenosis of between 50% and 69% on each side. The findings are more pronounced on the left side. 2. The vertebral arteries have antegrade flow. Dictated by... Louie Franco M.D. THIS IS AN ELECTRONICALLY VERIFIED REPORT Louie Franco M.D. at 07/16/2017 1:43 PM ABBIE/domingo TD: 07/16/2017 12:25 JOB #: [id number] [facility] A Service of [facility] RADIOLOGY TEXT RESULTS PATIENT: INESSA RAMOS LOCATION: [facility] 337-01 : 30 UNIT #: [id number] AGE: [address]: Steven Tejada MD SEX: M ORDER DR: MEDICAL IMAGING REPORT Page 1 of 1 COPY
--- NOTE | ~2017-07-14 | HP ---
Unit #: [id number] #: [id number] Patient: INESSA RAMOS [id number] [address] [address] [id number] I MR#: [id number] NAME: INESSA RAMOS ROOM: 337 Age: 87 Sex: M Admission Date: 07/14/2017 : 1930 Attending Physician: Kwaku Haddad M.D. Primary Care Physician: No Primary Care Physician HISTORY AND PHYSICAL CHIEF COMPLAINT Change in mental status, uncontrolled hypertension, DISCUSSION This is an 87-year-old gentleman who is a [facility] with the past medical history of hypertension, Alzheimer dementia with severe behavioral changes and agitation, orthostatic hypotension with labile hypertension. History of permanent pacemaker, peripheral vascular disease, chronic kidney disease, prostate cancer treated with hormone in the past, degenerative joint disease, GERD, iron deficiency anemia. He was found to be baseline around 6:30 and then around 7:00 he was found to be slumped over wheelchair, drooling, not responding and patient was brought to the emergency room. He underwent workup. CT of head, which was negative initially was planned for the tPA but patient improved in the ER and case was discussed with Dr. Sethi and he eventually tPA was held and he is responding now alert, awake, responding to questions but not in any distress. Not able to give me any history. PAST MEDICAL HISTORY 1. History of hypertension. 2. 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 3. Orthostatic hypotension and labile hypertension. 4. Peripheral vascular disease. 5. Permanent pacemaker. 6. Chronic kidney disease, states 2 to 3. 7. History of prostate cancer treated with hormones in the past. 8. Degenerative joint disease. 9. GERD. 10. Iron deficiency anemia. PAST SURGICAL HISTORY History of some sort of abdominal surgery. ALLERGIES No known drug allergy. SOCIAL HISTORY Patient lives in [facility]. He is essentially a lifelong nonsmoker. Does not drink alcohol. FAMILY HISTORY Noncontributory, given patient's age. MEDICATIONS FROM CARE HOME Unit #: [id number] #: [id number] Patient: INESSA RAMOS 1. Hydroxyzine 25 mg q.6 hours p.r.n. 2. Artificial teardrops 4 times daily. 3. Nitrol sublingual p.r.n. 4. Estradiol patch one weekly. 5. Hydralazine 25 mg 3 times daily. 6. Melatonin two tablets at bedtime. 7. Melatonin 10 mg twice a day. 8. Stool softener 100 mg twice a day. 9. Donepezil 10 mg at bedtime. 10. Vitamin D3 International units daily. 11. Aspirin 81 mg daily. 12. Tylenol 650 p.o. t.i.d. daily. 13. Ferrous sulfate 325 mg daily. 11. MiraLAX 17 g daily. 12. Divalproex sodium 125 mg 4 capsules b.i.d. REVIEW OF SYSTEMS Unable to get from the patient. PHYSICAL EXAMINATION GENERAL: Elderly man lying in the bed comfortably, currently not in any distress. 87-year-old gentleman, lying in the bed comfortably, currently not in any distress. He is sleepy. VITAL SIGNS: His current vitals are following: Heart rate 63, respiration 15, blood pressure 198/89, oxygen is 99%. HEENT: Pupils are equal, react to light and accommodation. Extraocular muscles are intact. NECK: Supple. No JVD. No thyromegaly. LUNGS: Clear to auscultation. No rhonchi and no wheezing. HEART: S1, S2, regular rate and rhythm. ABDOMEN: Soft, nontender, nondistended. Bowel sounds positive. EXTREMITIES: To inspection normal. No cyanosis, no clubbing, no edema. NEUROLOGIC: Unable to do neuro exam at this time secondary to patient's cooperation and severe history of dementia. DIAGNOSTIC STUDIES LABORATORY DATA: UA is negative. Troponin less than 0.05. Glucose 77. Chemistry - sodium 142, potassium 4.6, chloride 106, glucose 78, BUN 25, creatinine 1.2. LFT within normal limits. INR is 1.2 white count 4.7, hemoglobin 10, hematocrit 32, platelets is 123. IMAGING STUDIES: CT head is no acute findings, generalized atrophy. ASSESSMENT AND PLAN 1. Change in mental status. CT head is normal. Will admit the patient to monitor 23 hours of observation. Ask neurology, Dr. Sethi to evaluate. Will get MRI of the head without contrast. Patient had similar admission in the end of March and he has a CTA of head and neck, which shows no evidence of vertebral or carotid dissection in the neck. Plaque disease at both carotid bifurcations resulting in 65% stenosis in left ICA and 40% stenosis in the right ICA. Intracranially, no aneurysm or any vascular malformation was found. 2. Uncontrolled hypertension with the history of orthostatic hypotension, labile hypertension. Will monitor. Patient has been given labetalol in the emergency room 20 mg IV and also 10 mg IV and will monitor blood pressure and will place on hydralazine on a p.r.n. basis. Continue blood pressure medication of hydralazine. 3. History of Alzheimer dementia with behavioral changes and agitation. Unit #: [id number] #: [id number] Patient: INESSA RAMOS Continue Aricept, Namenda and valproic acid. 4. History of permanent pacemaker in the past. 5. Peripheral vascular disease. 6. Chronic kidney disease. 7. History of prostate cancer treated hormonally in the past. 8. Degenerative joint disease. 9. Gastroesophageal reflux disease. 10. Iron deficiency anemia. 11. Deep venous thrombosis prophylaxis, will place the patient on Lovenox. Dictated by Joaquina Parra/riccardo TD: 07/15/2017 14:33 JOB #: [id number] HISTORY AND PHYSICAL Page 1 of 1 X X HISTORY AND PHYSICAL
--- NOTE | ~2017-07-14 | OR ---
Unit #: [id number] #: [id number] Patient: INESSA RAMOS [id number] [facility]. [place], [place] [address] [id number] MR#: [id number] NAME: INESSA RAMOS ROOM: [facility] Date of Procedure: 07/28/2017 Admission Date: 07/16/2017 Surgeon: Doug Vila III, M.D. : 1930 Attending Physician: Tone Hurst M.D. Primary Care Physician: Primary Care Physician No OPERATIVE REPORT PREOPERATIVE DIAGNOSIS Need for enteral access. POSTOPERATIVE DIAGNOSES Need for enteral access with dense intraabdominal adhesions. PROCEDURES PERFORMED Esophagogastroduodenoscopy with attempted PEG tube placement. This was then converted to exploratory laparotomy with extensive lysis of adhesions and placement of 16-Yi jejunostomy tube. MANAGER ARCHITECTURE Edgar Camacho M.D. SPECIMENS None. COMPLICATIONS None apparent. ESTIMATED BLOOD LOSS Minimal. INDICATIONS FOR PROCEDURE This is an 87-year-old gentleman, who has severe dementia and aspiration. He underwent attempted PEG tube placement yesterday by truck driver heavy that was unsuccessful. We were consulted for feeding tube placement. DESCRIPTION OF PROCEDURE After consent was obtained, the patient was brought to the operating room and placed in the supine position. He was sedated and I passed an EGD scope easily into the esophagus under direct visualization. I was able to traverse the esophagus and enter the stomach without any difficulty. His pylorus was patent and the first and second portions of the duodenum appeared normal. I then insufflated the stomach. I was able to get one-to-one wall motion through the abdominal wall. However, I did not see transillumination of the light. I saw an area that looked to be possibly feasible for a feeding tube placement. So, I prepped this area with Betadine and injected with 1% plain lidocaine. I passed a large bore needle into the stomach and after one attempt, I realized that the stomach was much deeper. I then aborted that procedure and he was placed under general anesthetic and his abdomen was prepped and draped in standard Unit #: [id number] #: [id number] Patient: INESSA RAMOS surgical fashion. He had a previous upper midline incision and a subcostal incision for unknown reasons. The family was not aware of what was done previously. I entered the midline incision. After dividing the midline fascia, I encountered numerous intraabdominal adhesions and I dilated transverse colon. I did find a micro pinhole in the transverse colon. This was over sewed with Lembert sutures. I am not sure if this was from my attempt or the previous attempt the day before. I then tried to take down numerous upper adhesions and took me approximately 30 minutes to actually find the patient's stomach. He had a large barrel chest and the stomach was probably up within a significant hiatal hernia. The stomach was not amenable to placement of a G-tube because of its posterior and upward placement near the diaphragm. At this point, I abandoned the idea of a G-tube and proceeded with placement of a jejunostomy tube. I found the ligament of Treitz and went down approximately 8 inches. I put a pursestring suture along the antimesenteric border. I divided the serosa and entered the small bowel. I then cut the back wall of a T-tube off and trimmed the edges. This was fed through the jejunostomy site. I tightened down the pursestring and then I placed a long row of Lembert sutures to create a Witzel tunnel. The other end of the feeding tube was brought out through the left upper quadrant. It was secured to the level of skin with a 2-0 silk suture. I had good hemostasis and all needle, sponge, and instrument counts were correct x2. I reapproximated the midline fascia with interrupted #1 Vicryl sutures and the skin edges were reapproximated with stapling device. He tolerated the procedure without any problems and returned to the recovery room in stable condition. Dictated by... Doug Vila III, M.D. VCL/abbie TD: 07/30/2017 06:58 JOB #: [id number] OPERATIVE REPORT Page 1 of 1 X Doug Vila III, MD PROCEDURE OPERATIVE NOTE
--- NOTE | ~2017-07-14 | A ---
[facility] Nutrition Therapy DATE: 07/19/17 Patient: INESSA RAMOS Physician: STAR Address: [address] Room/Bed: [address] [place] [address], Zip: [place] [address] Admit Date: 07/16/17 Date of : 30 Height: 6 2 Weight: 130 59 NUTRITIONAL ASSESSMENT: REASON: Consult re: "meals" Admitting dx: 87 y/o male [facility] with AMS and uncontrolled HTN PMH: HTN, GERD, ROSARIO, DJD, PVD, CKD, prostate cancer, alzheimers dimentia, permanent pacemaker Anthropometrics: Ht: 74", wt: 130 vs 153 lbs, BMI: 16.7 vs 19.6, %IBW: 68% vs 81% Labs: Reviewed; nothing significant Meds: Colace, miralax, fe gluconate, Vit D I/O & Bowel function: Last BM unknown Skin Integrity: dry skin BLE, no edema Estimated Nutrition Needs: 8016-1079 kcals/day (based on average of weights; 64.3 kg) 64-77 g protein/day (based on average of weights; 64.3 kg) Fluids consistent with kcal needs or per MD Assessment: Chart reviewed, events noted. See admitting dx and PMH as stated above. RD consulted due to patient not eating or drinking per nursing. He is aphasic, lethargic and unresponsive. His current diet order is consistent carb/dental soft/2g sodium, however he is not eating and FURNACE STOCK INSPECTOR has been consulted for a swallow eval. DHT being placed for meds. Unable to obtain weight/diet history as the patient is not appropriate for interview, no family in room. 0 points scored on the malnutrition risk screen, however I suspect the patient has some degree of malnutrition but am unable to diagnose at this time. Note conflicting weights above, unable to determine accurate weight by physical assessment as he is covered with blankets. See RD recs below, will follow hospital course. Dx: Inadequate oral intake r/t dementia, AMS AEB no PO intake per RN, need for FURNACE STOCK INSPECTOR eval. Intervention: PO diet per FURNACE STOCK INSPECTOR vs nutrition support Monitoring, Evaluation and Goals: 1. Tolerance of oral diet with no chewing/swallowing difficulties vs nutrition support. 2. Maintain weight status, prevent unintentional weight loss. 3. Promote regular BM's. [facility] Nutrition Therapy DATE: 07/19/17 Patient: INESSA RAMOS Physician: STAR Address: [address] Room/Bed: [address] [place] [address], Zip: [place] [address] Admit Date: 07/16/17 Date of : 30 Height: 6 2 Weight: 130 59 Monitor: per protocol, criteria to determine if above goals met Recommendations: 1. PO diet per FURNACE STOCK INSPECTOR only for safety with no other dietary restrictions. Even if the patient passes FURNACE STOCK INSPECTOR eval he will likely not be able to maintain adequate oral intake via oral diet alone. Oral supplements and enteral nutrition may be needed. 2. If patient fails FURNACE STOCK INSPECTOR eval and enteral nutrition is consistent with the patients goals of care start feeds with Jevity 1.5 @ 20 ml/hr and increase by 10 ml q 8 hours until goal rate of 50 ml/hr is reached, to provide 100% of estimated nutrition needs (will provide 1200 ml, 1800 kcals, 77 g protein and 912 ml water). Once at goal rate add 225 ml free water flushes QID and hold liquid IVF or per MD. 3. Monitor lytes and replete to WNL prn. 4. Please weigh q 3 days for monitoring purposes. RD will follow Moderate nutrition risk Respectfully, Amna Borrero RD, [facility] cc: client file
--- NOTE | ~2017-07-14 | CR72 ---
[facility] A Service of [facility] RADIOLOGY TEXT RESULTS PATIENT: INESSA RAMOS LOCATION: [facility] 337-01 : 30 UNIT #: [id number] AGE: [address]: Randy Wong MD SEX: M ORDER DR: [id number] [facility] [address] [facility]. [place], [place] [address] [id number] I MR#: [id number] Acc #: [id number] NAME: INESSA RAMOS : 1930 SEX: M STUDY DATE/TIME: 07/18/2017 10:49 UNIT: [address] ROOM: [facility] STUDY DESCRIPTION: CR Chest Single View Portable Attending Physician: Randy Wong M.D. Ordering Physician: Randy Wong M.D. Primary Care Physician: No Primary Care Physician MEDICAL IMAGING REPORT This report is preliminary unless electronic signature is present EXAM Portable chest, 07/18/2017. HISTORY Short of air. Patient has decreased mental status. Symptoms started 2 days ago. COMPARISON 11/21/2016 FINDINGS Portable view of the chest was obtained. The heart size and vascularity are normal, and the lungs are clear. A dual-lead pacemaker is in good position. The bones are normal. IMPRESSION No active disease. Dictated by... Louie Franco M.D. THIS IS AN ELECTRONICALLY VERIFIED REPORT Louie Franco M.D. at 07/18/2017 1:36 PM Zoey TD: 07/18/2017 13:21 JOB #: [id number] MEDICAL IMAGING REPORT Page 1 of 1 COPY
[~2017-07-14 19:29] MED LIST: ARCTIC RELIE113.4 GM; ARTIFICIAL TEA1 EACH; ASPIRIN81 MG PO; DIVALPROEX SOD250 MG PO; DIVALPROEX SOD500 M1 PO; DONEPEZIL HCL10 MG PO; ESTRADIOL1 EAC1 TD; FERRO-TIME325 MG PO; MAPAP ARTHRITI650 M1 PO; MEMANTINE HCL10 MG; MIRALAX17 GM PO; NITROGLYCERIN0.4 MG; STOOL SOFTENER250 MG PO; VITAMIN D-32000 UNI1 PO
[2017-07-14 19:52] LABS: BASOPHIL% 0.7 % (0-2.5); EOSINOPHIL% 0.1 % (0.0-7.0); HEMATOCRIT 32.6 % (38.0-50.0); HEMOGLOBIN 10.8 gm/dL (13.0-16.0); LYMPHOCYTE# 0.9 X10e3 (1.0-3.5); MEAN CELL VOLUME 79.8 FL (83-96); MEAN CORPUSCULAR HEMOGLOBIN 26.5 PG (28-34); MEAN CORPUSCULAR HGB CONC 33.2 g/dL (30-36); MEAN PLATELET VOLUME 8.2 FL (6.5-11.5); MONOCYTE# 0.7 X10e3 (0-1.0); MONOCYTE% 15.1 % (3.0-12.0); NEUTROPHIL# 3.1 X10e3 (1.5-7.1); NEUTROPHIL% 66.1 % (40-75); PLATELET COUNT 123 X10e3 (140-420); RED BLOOD COUNT 4.09 X10e (3.90-5.60); RED CELL DISTRIBUTION WIDTH 17.5 % (11.0-15.5); WHITE BLOOD COUNT 4.7 X10e3 (4.0-10.5)
[2017-07-14 19:53] LABS: DIFF IND NO
[2017-07-14 20:06] LABS: INR 1.2; PROTHROMBIN TIME (PATIENT) 12.5 SECONDS (10.0-11.7)
[2017-07-14 20:25] LABS: ALBUMIN SERUM 2.9 g/dL (3.5-5.0); BILIRUBIN, DIRECT 0.3 mg/dL (0.0-0.2); BILIRUBIN,INDIRECT 0.5 mg/dL (0.0-0.9); BILIRUBIN,TOTAL 0.8 mg/dL (0.2-2.0); BUN/CREATININE RATIO 20.83; CALCIUM SERUM 8.5 mg/dL (8.4-10.2); CREATININE SERUM 1.2 mg/dL (0.6-1.4); GLOM FILT RATE Estimated 62.7 mL/min (>60); POTASSIUM 4.6 mmol/L (3.5-5.1); PROTEIN TOTAL SERUM 6.3 g/dL (6.0-8.3)
[2017-07-14 20:47] LABS: POC - CKMB 2.8 ng/mL (0.0-7.9); POC - TROPONIN <0.05 ng/mL (<=0.05)
[2017-07-14 21:12] LABS: URINE SOURCE CLEAN CATCH
[2017-07-14 21:26] LABS: URINE APPEARANCE CLEAR; URINE BILIRUBIN NEG (NEG); URINE BLOOD NEG (NEG); URINE COLOR YELLOW; URINE GLUCOSE NEG (NEG); URINE KETONE 1+ (NEG); URINE LEUKOCYTE ESTERASE TRACE (NEG); URINE NITRATE NEG (NEG); URINE PROTEIN NEG (NEG); URINE SPECIFIC GRAVITY 1.021 (1.003-1.035)
[2017-07-14 21:28] LABS: URBCS1 AUWI 0-2 /[HPF] (0-2); URINE BACTERIA AUWI NEG (NEGATIVE); URINE SQUAMOUS EPITHELIAL CELL NONE SEEN /[HPF]; UWBCS1 AUWI 0-2 (0-5)
[2017-07-14 21:34] LABS: CULTURE INDICATED? NO
[2017-07-14] MEDS ORDERED: HYDRALAZINE HCL25 MG PO (21:51)
[2017-07-14] MEDS ORDERED: MELATIN3 MG PO (21:57)
[2017-07-14] MEDS ORDERED: HYDROXYZINE PAM25 M1 PO (21:58)
[2017-07-15 11:04] LABS: CALCIUM SERUM 8.1 mg/dL (8.4-10.2); CREATININE SERUM 0.8 mg/dL (0.6-1.4); GLOM FILT RATE Estimated 93.1 mL/min (>60); POTASSIUM 4.2 mmol/L (3.5-5.1)
[2017-07-16 07:54] LABS: HEMATOCRIT 29.9 % (38.0-50.0); MEAN CELL VOLUME 79.8 FL (83-96); MEAN CORPUSCULAR HEMOGLOBIN 26.6 PG (28-34); MEAN CORPUSCULAR HGB CONC 33.3 g/dL (30-36); MEAN PLATELET VOLUME 8.1 FL (6.5-11.5); RED BLOOD COUNT 3.75 X10e (3.90-5.60); RED CELL DISTRIBUTION WIDTH 17.1 % (11.0-15.5); WHITE BLOOD COUNT 4.6 X10e3 (4.0-10.5)
[2017-07-18 06:42] LABS: HEMATOCRIT 33.4 % (38.0-50.0); HEMOGLOBIN 11.1 gm/dL (13.0-16.0); MEAN CORPUSCULAR HEMOGLOBIN 26.2 PG (28-34); MEAN CORPUSCULAR HGB CONC 33.1 g/dL (30-36); MEAN PLATELET VOLUME 8.2 FL (6.5-11.5); RED BLOOD COUNT 4.23 X10e (3.90-5.60); RED CELL DISTRIBUTION WIDTH 17.4 % (11.0-15.5); WHITE BLOOD COUNT 11.3 X10e3 (4.0-10.5)
[2017-07-18 07:22] LABS: CALCIUM SERUM 8.6 mg/dL (8.4-10.2); GLOM FILT RATE Estimated 78.1 mL/min (>60); POTASSIUM 4.2 mmol/L (3.5-5.1)
[2017-07-18 11:31] LABS: URINE APPEARANCE CLEAR; URINE BILIRUBIN NEG (NEG); URINE BLOOD NEG (NEG); URINE COLOR YELLOW; URINE GLUCOSE NEG (NEG); URINE KETONE 1+ (NEG); URINE LEUKOCYTE ESTERASE 1+ (NEG); URINE NITRATE NEG (NEG); URINE PH 5.5 (5-8); URINE PROTEIN NEG (NEG)
[2017-07-18 11:34] LABS: URBCS1 AUWI 0-2 /[HPF] (0-2); URINE BACTERIA AUWI 2+ (NEGATIVE); URINE SQUAMOUS EPITHELIAL CELL FEW /[HPF]
[2017-07-18 12:04] LABS: URINE SOURCE CLEAN CATCH
[2017-07-19 06:17] LABS: HEMATOCRIT 28.8 % (38.0-50.0); HEMOGLOBIN 9.6 gm/dL (13.0-16.0); MEAN CELL VOLUME 79.5 FL (83-96); MEAN CORPUSCULAR HEMOGLOBIN 26.4 PG (28-34); MEAN CORPUSCULAR HGB CONC 33.2 g/dL (30-36); RED BLOOD COUNT 3.63 X10e (3.90-5.60); RED CELL DISTRIBUTION WIDTH 17.1 % (11.0-15.5); WHITE BLOOD COUNT 9.7 X10e3 (4.0-10.5)
[2017-07-19 06:30] LABS: ALBUMIN SERUM 2.1 g/dL (3.5-5.0); BILIRUBIN,TOTAL 0.8 mg/dL (0.2-2.0); GLOM FILT RATE Estimated 78.1 mL/min (>60); POTASSIUM 3.7 mmol/L (3.5-5.1); PROTEIN TOTAL SERUM 5.1 g/dL (6.0-8.3)
[2017-07-20 05:47] LABS: HEMATOCRIT 30.3 % (38.0-50.0); HEMOGLOBIN 10.2 gm/dL (13.0-16.0); MEAN CELL VOLUME 79.4 FL (83-96); MEAN CORPUSCULAR HEMOGLOBIN 26.7 PG (28-34); MEAN CORPUSCULAR HGB CONC 33.6 g/dL (30-36); MEAN PLATELET VOLUME 8.2 FL (6.5-11.5); RED BLOOD COUNT 3.82 X10e (3.90-5.60); RED CELL DISTRIBUTION WIDTH 17.1 % (11.0-15.5); WHITE BLOOD COUNT 9.3 X10e3 (4.0-10.5)
[2017-07-20 06:51] LABS: FOLATE (FOLIC ACID) 5.7 ng/mL (>5.8)
[2017-07-20 07:00] LABS: BUN/CREATININE RATIO 25.45; CALCIUM SERUM 8.4 mg/dL (8.4-10.2); CREATININE SERUM 1.1 mg/dL (0.6-1.4); GLOM FILT RATE Estimated 69.6 mL/min (>60); POTASSIUM 3.5 mmol/L (3.5-5.1)
[2017-07-21 06:05] LABS: BUN/CREATININE RATIO 33.33; CALCIUM SERUM 8.6 mg/dL (8.4-10.2); CREATININE SERUM 0.9 mg/dL (0.6-1.4); GLOM FILT RATE Estimated 88.7 mL/min (>60); POTASSIUM 3.6 mmol/L (3.5-5.1)
[2017-07-22 06:14] LABS: HEMATOCRIT 27.8 % (38.0-50.0); HEMOGLOBIN 9.3 gm/dL (13.0-16.0); MEAN CORPUSCULAR HEMOGLOBIN 26.1 PG (28-34); MEAN CORPUSCULAR HGB CONC 33.5 g/dL (30-36); MEAN PLATELET VOLUME 8.1 FL (6.5-11.5); RED BLOOD COUNT 3.56 X10e (3.90-5.60); RED CELL DISTRIBUTION WIDTH 17.3 % (11.0-15.5)
[2017-07-22 07:05] LABS: CALCIUM SERUM 8.6 mg/dL (8.4-10.2); CREATININE SERUM 0.9 mg/dL (0.6-1.4); GLOM FILT RATE Estimated 88.7 mL/min (>60); POTASSIUM 3.5 mmol/L (3.5-5.1)
[2017-07-23 05:46] LABS: HEMATOCRIT 25.8 % (38.0-50.0); HEMOGLOBIN 8.7 gm/dL (13.0-16.0); MEAN CELL VOLUME 77.9 FL (83-96); MEAN CORPUSCULAR HEMOGLOBIN 26.4 PG (28-34); MEAN CORPUSCULAR HGB CONC 33.9 g/dL (30-36); MEAN PLATELET VOLUME 7.8 FL (6.5-11.5); RED BLOOD COUNT 3.31 X10e (3.90-5.60); RED CELL DISTRIBUTION WIDTH 17.3 % (11.0-15.5); WHITE BLOOD COUNT 11.1 X10e3 (4.0-10.5)
[2017-07-23 06:11] LABS: BUN/CREATININE RATIO 32.5; CALCIUM SERUM 8.5 mg/dL (8.4-10.2); CREATININE SERUM 0.8 mg/dL (0.6-1.4); GLOM FILT RATE Estimated 93.1 mL/min (>60); POTASSIUM 3.3 mmol/L (3.5-5.1)
[2017-07-24 06:13] LABS: HEMATOCRIT 26.5 % (38.0-50.0); HEMOGLOBIN 8.9 gm/dL (13.0-16.0); MEAN CELL VOLUME 77.9 FL (83-96); MEAN CORPUSCULAR HEMOGLOBIN 26.1 PG (28-34); MEAN CORPUSCULAR HGB CONC 33.5 g/dL (30-36); MEAN PLATELET VOLUME 7.4 FL (6.5-11.5); RED BLOOD COUNT 3.41 X10e (3.90-5.60); RED CELL DISTRIBUTION WIDTH 17.4 % (11.0-15.5); WHITE BLOOD COUNT 12.1 X10e3 (4.0-10.5)
[2017-07-24 06:42] LABS: CALCIUM SERUM 8.5 mg/dL (8.4-10.2); CREATININE SERUM 0.8 mg/dL (0.6-1.4); GLOM FILT RATE Estimated 93.1 mL/min (>60); POTASSIUM 3.9 mmol/L (3.5-5.1)
[2017-07-24 10:51] LABS: ARTERIAL BLD GAS O2 SATURATION 94.5 % (90.0-100.0); ARTERIAL BLOOD GAS CARBOXY HB 1.1 %sat (0.0-9.0); ARTERIAL BLOOD GAS HCO3 32.5 mmol/L; ARTERIAL BLOOD GAS MET HB 0.6 %sat (0.0-2.0); ARTERIAL BLOOD GAS PCO2 40.1 mmHg (35.0-45.0); ARTERIAL BLOOD GAS pH 7.517 (7.350-7.450)
[2017-07-24 10:52] LABS: ARTERIAL BLOOD GAS ALLEN TEST NORMAL; ARTERIAL BLOOD GAS ART SITE RIGHT RADIAL; ARTERIAL BLOOD GAS PO2 73.1 mmHg (80.0-100); ARTERIAL DRAW? YES
[2017-07-25 07:22] LABS: HEMATOCRIT 28.3 % (38.0-50.0); HEMOGLOBIN 9.4 gm/dL (13.0-16.0); MEAN CELL VOLUME 77.7 FL (83-96); MEAN CORPUSCULAR HEMOGLOBIN 25.9 PG (28-34); MEAN CORPUSCULAR HGB CONC 33.3 g/dL (30-36); MEAN PLATELET VOLUME 7.5 FL (6.5-11.5); RED BLOOD COUNT 3.64 X10e (3.90-5.60); RED CELL DISTRIBUTION WIDTH 17.1 % (11.0-15.5); WHITE BLOOD COUNT 11.6 X10e3 (4.0-10.5)
[2017-07-25 08:03] LABS: ALBUMIN SERUM 1.9 g/dL (3.5-5.0); BILIRUBIN,TOTAL 1.1 mg/dL (0.2-2.0); CALCIUM SERUM 8.5 mg/dL (8.4-10.2); CREATININE SERUM 0.8 mg/dL (0.6-1.4); GLOM FILT RATE Estimated 93.1 mL/min (>60); POTASSIUM 3.9 mmol/L (3.5-5.1); PROTEIN TOTAL SERUM 5.6 g/dL (6.0-8.3)
[2017-07-26 06:08] LABS: HEMATOCRIT 27.7 % (38.0-50.0); HEMOGLOBIN 9.1 gm/dL (13.0-16.0); MEAN CORPUSCULAR HEMOGLOBIN 25.7 PG (28-34); MEAN PLATELET VOLUME 7.4 FL (6.5-11.5); RED BLOOD COUNT 3.55 X10e (3.90-5.60); RED CELL DISTRIBUTION WIDTH 17.2 % (11.0-15.5); WHITE BLOOD COUNT 11.1 X10e3 (4.0-10.5)
[2017-07-26 06:42] LABS: BUN/CREATININE RATIO 27.5; CALCIUM SERUM 8.6 mg/dL (8.4-10.2); CREATININE SERUM 0.8 mg/dL (0.6-1.4); GLOM FILT RATE Estimated 93.1 mL/min (>60); POTASSIUM 3.8 mmol/L (3.5-5.1)
[2017-07-27 05:22] LABS: HEMATOCRIT 25.5 % (38.0-50.0); HEMOGLOBIN 8.6 gm/dL (13.0-16.0); MEAN CELL VOLUME 77.3 FL (83-96); MEAN CORPUSCULAR HEMOGLOBIN 26.1 PG (28-34); MEAN CORPUSCULAR HGB CONC 33.7 g/dL (30-36); RED BLOOD COUNT 3.3 X10e (3.90-5.60); RED CELL DISTRIBUTION WIDTH 17.1 % (11.0-15.5); WHITE BLOOD COUNT 9.1 X10e3 (4.0-10.5)
[2017-07-27 05:28] LABS: INR 1.1; PARTIAL THROMBOPLASTIN TIME 30.1 SECONDS (23.5-31.3); PROTHROMBIN TIME (PATIENT) 11.4 SECONDS (10.0-11.7)
[2017-07-27 05:49] LABS: BUN/CREATININE RATIO 23.33; CALCIUM SERUM 8.5 mg/dL (8.4-10.2); CREATININE SERUM 0.9 mg/dL (0.6-1.4); GLOM FILT RATE Estimated 88.7 mL/min (>60); POTASSIUM 3.8 mmol/L (3.5-5.1)
[2017-07-29 07:17] LABS: HEMATOCRIT 25.2 % (38.0-50.0); HEMOGLOBIN 8.3 gm/dL (13.0-16.0); MEAN CELL VOLUME 78.4 FL (83-96); MEAN CORPUSCULAR HEMOGLOBIN 25.8 PG (28-34); MEAN CORPUSCULAR HGB CONC 32.9 g/dL (30-36); MEAN PLATELET VOLUME 7.1 FL (6.5-11.5); RED BLOOD COUNT 3.21 X10e (3.90-5.60); RED CELL DISTRIBUTION WIDTH 17.2 % (11.0-15.5); WHITE BLOOD COUNT 26.3 X10e3 (4.0-10.5)
[2017-07-29 07:28] LABS: BUN/CREATININE RATIO 16.36; CALCIUM SERUM 8.3 mg/dL (8.4-10.2); CREATININE SERUM 1.1 mg/dL (0.6-1.4); GLOM FILT RATE Estimated 69.6 mL/min (>60); POTASSIUM 3.9 mmol/L (3.5-5.1)
[2017-07-30 06:42] LABS: POTASSIUM 3.5 mmol/L (3.5-5.1)
== END 2017-07-30 17:05 | DRG 981 ==
LOC: CED 19:29 → CEDOF 22:20 → CED 22:29 → CEDOF 22:29 → C3A PCU 23:30 → CEDOF 23:30 → C3A PCU 23:30 → CEDOF 07-16 15:07 → C3A PCU 07-17 07:01
PROVIDERS: Emergency Medicine; Family Medicine; Internal Medicine; Surgery
PROC: 02HV33Z Insertion of Infusion Device into Superior Vena Cava, Percutaneous Approach (ICD-10-PCS; principal; 2017-07-18)
PROC: B548ZZA Ultrasonography of Superior Vena Cava, Guidance (ICD-10-PCS; 2017-07-18)
PROC: B518YZA Fluoroscopy of Superior Vena Cava using Other Contrast, Guidance (ICD-10-PCS; 2017-07-18)
PROC: 0DH67UZ Insertion of Feeding Device into Stomach, Via Natural or Artificial Opening (ICD-10-PCS; 2017-07-26)
PROC: 0DB98ZX Excision of Duodenum, Via Natural or Artificial Opening Endoscopic, Diagnostic (ICD-10-PCS; 2017-07-26)
PROC: 0DNW0ZZ Release Peritoneum, Open Approach (ICD-10-PCS; 2017-07-28)
PROC: 0DHA0UZ Insertion of Feeding Device into Jejunum, Open Approach (ICD-10-PCS; 2017-07-28)
PROC: 0DQL0ZZ Repair Transverse Colon, Open Approach (ICD-10-PCS; 2017-07-28)
PROC: 0DJ04ZZ Inspection of Upper Intestinal Tract, Percutaneous Endoscopic Approach (ICD-10-PCS; 2017-07-28 10:30)
DX: G30.9 Alzheimer's disease, unspecified (principal); J69.0 Pneumonitis due to inhalation of food and vomit; I67.4 Hypertensive encephalopathy; R13.12 Dysphagia, oropharyngeal phase; D69.6 Thrombocytopenia, unspecified; K25.9 Gastric ulcer, unspecified as acute or chronic, without hemorrhage or perforation; F05 Delirium due to known physiological condition; D52.9 Folate deficiency anemia, unspecified; I16.1 Hypertensive emergency; F02.81 Dementia in other diseases classified elsewhere, unspecified severity, with behavioral disturbance; Z68.1 Body mass index [BMI] 19.9 or less, adult; N18.3 Chronic kidney disease, stage 3 (moderate); K21.9 Gastro-esophageal reflux disease without esophagitis; Z66 Do not resuscitate; I12.9 Hypertensive chronic kidney disease with stage 1 through stage 4 chronic kidney disease, or unspecified chronic kidney disease; Z85.46 Personal history of malignant neoplasm of prostate; Z95.810 Presence of automatic (implantable) cardiac defibrillator; R63.6 Underweight; Z88.0 Allergy status to penicillin; Z91.81 History of falling; Z87.891 Personal history of nicotine dependence; Z99.3 Dependence on wheelchair; I73.9 Peripheral vascular disease, unspecified; D50.9 Iron deficiency anemia, unspecified; Z79.82 Long term (current) use of aspirin; K29.70 Gastritis, unspecified, without bleeding
CPT/HCPCS: 36415; 36600; 51701; 70450; 70460; 71010; 71020; 74000; 76937; 77001; 80048; 80053; 80076; 80164; 80202; 81003; 82553; 82607; 82746; 82803; 82947; 83735; 84132; 84443; 84484; 85025; 85027; 85610; 85730; 87040; 87086; 92507; 92526; 92610; 93005; 93880; 94760; 96374; 96376; 97163; 97167; 99285; C1751; G8978-GP; G8979-GP; G8980-GP; G8987-GO; G8988-GO; G8989-GO; G8996-GN; G8997-GN; J0360; J0692; J1630; J1650; J1940; J2270; J2405; J2710; J3010; J3370; J3475; Q9967

== ENCOUNTER 2017-08-04 18:30 | Observation (INO) | payer MEDICARE, OTHER ==
[~2017-08-04] VITALS: Ht 170.2 cm; Wt 58.5 kg
--- NOTE | ~2017-08-04 | DS ---
Unit #: [id number] #: [id number] Patient: INESSA RAMOS [id number] [facility] [address] [facility]. [place], [place] [address] [id number] MR#: [id number] NAME: INESSA RAMOS ROOM: 227 Age: 87 Sex: M Admission Date: 08/04/2017 : 1930 Discharge Date: 08/06/2017 Attending Physician: Tone Hurst M.D. Primary Care Physician: Nader Higgins M.D. DISCHARGE SUMMARY REASON FOR ADMISSION Acute blood loss anemia. HISTORY OF PRESENT ILLNESS/HOSPITAL COURSE The patient is an 87-year-old gentleman with prior history of hypertension, Alzheimer dementia, behavioral changes, orthostatic hypotension, labile hypertension, peripheral vascular disease, chronic kidney disease, prostate cancer, who was originally admitted to our hospital from July 14 to July 30. At that point in time, he was discharged to a long-term shelter. He had undergone a J-tube placement. Apparently, while at the shelter, he underwent routine laboratory studies secondary to leakage around the jluis as well as J-tube site. His hemoglobin was noted to be 6.9 while there and was subsequently transferred to be evaluated at [facility]. While here, we placed consultation to [facility] as they had placed the J-tube on recent hospital admission. They felt as though J-tube was in appropriate position and functioning normally. Tube feeds were resumed. Recommendation was made for abdominal binder to be worn at all times, otherwise, no other acute intervention was made. The patient was typed and crossed and transfused two units of packed RBCs. His hemoglobin remained stable and close to 10. Today, at time of discharge, it is currently 10.2. Risk/benefit ratio was discussed with [facility]. In consideration of patient's chronic and medical conditions as well as overall poor prognosis, decision was made against endoscopic evaluation. Because his hemoglobin is currently stable, the patient is medically cleared to be transferred back to shelter for ongoing care. FINAL DISCHARGE DIAGNOSES 1. Anemia, likely multifactorial secondary to chronic disease as well as recent hospital admission and/or OR intervention. His baseline hemoglobin appears to be close to 8 to 9. 2. Dementia multifactorial, Alzheimer's primarily. 3. Associated behavioral disturbance secondary to underlying dementia. 4. Hypertension. 5. Peripheral vascular disease. 6. Prior history of pacemaker placement. 7. Chronic kidney disease stage 3/4. 8. Prostate cancer with treatment with hormones. 9. Dysphagia status post J-tube placement. 10. Degenerative joint disease. 11. Prior history of gastroesophageal reflux disease. Unit #: [id number] #: [id number] Patient: INESSA RAMOS DISCHARGE MEDICATIONS 1. Tylenol 650 mg q.4 p.r.n. 2. Valproic acid 250 mg b.i.d. 3. Norvasc 5 mg q.a.m. 4. Catapres topical every Monday. 5. Estraderm topical Monday. 6. Hydralazine 25 mg t.i.d. 7. Lisinopril 2.5 mg daily. 8. Folic acid 1 mg daily. 9. Sublingual nitro as directed. 10. Protonix 40 mg daily. DISCHARGE DISPOSITION Back to shelter. DISCHARGE CONDITION Stable. Long-term prognosis of this patient is very poor. Dictated by... Tone Hurst M.D. DENEEN/yojana TD: 08/06/2017 11:54 JOB #: [id number] DISCHARGE SUMMARY Page 1 of 1 X Tone Hurst MD X DISCHARGE SUMMARY
--- NOTE | ~2017-08-04 | HP ---
Unit #: [id number] #: [id number] Patient: INESSA RAMOS [id number] [address] [place], [place] [address] [id number] I MR#: [id number] NAME: INESSA RAMOS ROOM: 470 Age: 87 Sex: M Admission Date: 08/05/2017 : 1930 Attending Physician: Tone Hurst M.D. Primary Care Physician: Nader Higgins M.D. HISTORY AND PHYSICAL CHIEF COMPLAINT The patient was sent from the half-way for the evaluation of low blood count, hemoglobin 6, and hematocrit 21. DISCUSSION This is an 87-year-old gentleman who has history of hypertension, Alzheimer's dementia with severe behavioral changes, orthostatic hypotension, and labile hypertension, peripheral vascular disease, chronic kidney disease, prostate cancer treated with hormones in the past, iron deficiency anemia, folate anemia. He is currently living in the half-way. He was admitted here on July 14 and discharged on July 30, 2017 to half-way. He is a long-term half-way resident. He was admitted secondary to mental status changes. Initially the patient was found to have elevated blood pressure and he also had workup and appropriate workup was done, blood culture as negative, urinalysis was negative secondary to poor p.o. intake and speech therapy was consulted. They recommended a PEG placement and the patient initially underwent evaluation by Dr. Ernandez and upper endoscopy was unable to be performed, PEG placement secondary to previous surgery and LSA was consulted, and the patient underwent exploratory laparotomy, lysis of adhesions and placement of jejunostomy tube on 07/28/17. Eventually the patient was discharged to half-way. He was sent back to the emergency room initially there were saying possible leakage around the J-tube site which was not seen in the emergency room, there was leakage around the jluis but his hemoglobin in the half-way was 6.9 and 21 and he was sent here. He has hemoglobin of 7 and 21, and eventfully been admitted for 23-hour observation for transfusion. The patient was unable to give me any history , he is totally demented. All history obtained from the previous records. PAST MEDICAL HISTORY 1. History of hypertension. 2. Alzheimer's dementia with severe behavioral changes and agitation. 3. History of orthostatic hypotension and labile hypertension. 4. Peripheral vascular disease. 5. Permanent pacemaker. 6. Chronic kidney disease, stage II to III. 7. History of prostate cancer treated with hormones in the past. 8. Degenerative joint disease. 9. History of folate deficiency anemia. 10. GERD. PAST SURGICAL HISTORY 1. History of abdominal surgeries in the past. 2. History of exploratory laparotomy with lysis of adhesions and Unit #: [id number] #: [id number] Patient: INESSA RAMOS placement of jejunostomy tube on 07/28/17. ALLERGIES No known drug allergies. SOCIAL HISTORY The patient is currently from [facility], lifelong nonsmoker. He does not drink alcohol. FAMILY HISTORY Noncontributory. MEDICATIONS FROM [facility] Is the followin. Norvasc 5 mg via J-tube daily 2. Catapres one patch every seven days 3. Estradiol 0.1 mg every week 4. Lisinopril 2.5 mg via J-tube daily 5. Folic acid 1 mg via J-tube daily 6. Hydralazine 25 mg via J-tube three times a day 7. Valproic acid 250 mg twice daily 8. Tylenol 650 via J-tube every four hours p.r.n. 9. Jevity 60 mL continuous tube feeds PHYSICAL EXAMINATION GENERAL EXAMINATION: 87-year-old gentleman lying in the bed comfortably, currently not in any distress. She is alert, awake, and oriented x0, comfortable, not in any distress. VITAL SIGNS: Current vitals are the following, temperature 98, heart rate 84, respiratory rate 14, and blood pressure 134/89. HEENT EXAMINATION: Pupils equal reactive to light and accommodation. Extraocular muscles are intact. NECK: Supple. No jugular venous distention. No thyromegaly. HEART: S1 and S2, regular rate and rhythm. LUNGS: Clear to auscultation. No rhonchi. No wheezing. ABDOMEN: Soft, nontender, positive midline jluis, mild oozing around the jluis and around G-tube site, there is mild leakage. EXTREMITIES: Inspection normal. No cyanosis, no clubbing, and no edema. NEUROLOGIC: Not able to do neuro exam secondary to patient's cooperation with history of severe dementia. DIAGNOSTIC STUDIES LABORATORY: Laboratory workup is the following, BNP is 402. Urinalysis is negative. Troponin 0.05. White count 5.3, hemoglobin 7, hematocrit 21, platelets 240. Chemistry, sodium 130, potassium 3.9, chloride 95, glucose 91, BUN 26, creatinine 1, lactic acid 1, INR 1.1. ASSESSMENT/PLAN 1. Anemia, will admit the patient to transfuse two units of packed red blood cells with history of iron deficiency and folate deficiency anemia, also recent surgery, postop will ask to transfuse two units. 2. History of status post exploratory laparotomy with lysis of adhesions and placing of J-tube placement on 07/28/17. 3. Advanced dementia. 4. Chronic immobility syndrome, bed bound. 5. Iron deficiency, folate deficiency anemia. 6. Peripheral vascular disease. 7. History of GERD. Unit #: [id number] #: [id number] Patient: INESSA RAMOS 8. Hypertension. 9. Poor p.o. intake, status post J-tube placement currently on the Jevity tube feed continuously. Dictated by Joaquina Parra TD: 08/05/2017 15:04 JOB #: [id number] HISTORY AND PHYSICAL Page 1 of 1 X X HISTORY AND PHYSICAL
--- NOTE | ~2017-08-04 | A ---
[facility] Nutrition Therapy DATE: 08/05/17 Patient: INESSA RAMOS Physician: CHRISTA Address: [address] [place] [address] DRIVE Room/Bed: [address] [place] [address], Zip: [place] [address] Admit Date: 08/05/17 Date of : 30 Height: 5 7 Weight: 128 58.5 NUTRITIONAL ASSESSMENT: REASON: ONE NUTRITION RISK PT RE: HOME TUBE FEEDS PT IS 87 Y.O. MALE ADMITTED FOR ANEMIA PMH: HTN, GERD, DJD, PVD, CKD, PROSTATE CANCER, END STAGE DEMENTIA, DYSPHAGIA, HYPOTHYROIDISM, SEIZURES, DETENTION RESIDENT Anthropometrics: 5'7", WT: 128-142# (58-65 KG), BMI: 20-22 Labs: BUN: 24, CA++:7.8, ALB: 2.0, NA+:132 Meds: FOLIC ACID, NACL I/O & Bowel function: 550/1 Skin Integrity: DRY SKIN ALL OVER BODY, NO EDEMA Estimated Nutrition Needs: 6717-2502 KCAL (30-35 KCAL/KG BW) (AVERAGE WEIGHT: 61 KG) 61-74 G PRO (1.0-1.2 G PRO/BW) (AVERAGE WEIGHT: 61 KG) FLUIDS CONSISENT W/KCAL NEEDS OR MANAGE PER MD Assessment: CHART REVIEWED AND EVENTS NOTED. PT SEEN FOR TUBE FEED ASSESSMENT. PT NOT APPROPRIATE FOR DIET INTERVIEW 2' PMH, RD SPOKE TO DAUGHTER AT BEDSIDE. PT IS S/P J-TUBE PLACEMENT ON 07/28/17, UNABLE TO PLACE PEG 2' ANATOMY AND PRIOR SURGERIES. PT RECEIVING ENTERAL NUTRITION SUPPORT OF JEVITY 1.5 @ 60 ML/HR (RECEIVES AT DETENTION). PER RN AND CHART, PT TOLERATING EN. DAUGHTER REPORTED NO DIET QUESTIONS AT THIS TIME. RD TO FOLLOW. SEE RECOMMENDATIONS BELOW. -EN PROVIDES 2160 KCAL, 92 G PRO, 1094 ML FREE H20 Dx: INADEQUATE ORAL INTAKE R/T DEMENTIA, AMS, AEB ENTERAL NUTRITION SUPPORT IN PLACE. Intervention: 1. J-TUBE 2. NUTRITION SUPPORT Monitoring, Evaluation and Goals: 1. ENTERAL NUTRITION; PROVIDE >80% GOAL VOLUME X 24 HOURS ONCE AT GOAL RATE 2. MAINTAIN WEIGHTS 3. GI; PROMOTE REGULAR GI FUNCTION MONITOR: PER PROTOCOL, CRITERIA TO DETERMINE IF ABOVE GOALS ARE MET [facility] Nutrition Therapy DATE: 08/05/17 Patient: INESSA RAMOS Physician: CHRISTA Address: [address] [place] [address] Room/Bed: [address] [place] [address], Zip: [place] [address] Admit Date: 08/05/17 Date of : 30 Height: 5 7 Weight: 128 58.5 Recommendations: 1. RECOMMEND TO DECREASE CURRENT ENTERAL NUTRITION SUPPORT OF JEVITY 1.5 TO GOAL RATE OF 55 ML/HR -PROVIDES 1980 KCAL, 84 G PRO, 1003 ML FREE H20 CONTINUE FREE H20 FLUSHES PER DETENTION (250 ML q 6 HOURS) 2. MONITOR LYTES AND REPLACE WNL PRN 3. PLEASE WEIGH q 2-[address] FOR MON[address]ORING PURPOSES [address] WILL F/U PER PROTOCOL PT IS MODERATELY COMPROMISED Respectfully, ARABELLA PARSON MS, RD, LD Food and Nutritional Services [facility] cc: client file
--- NOTE | ~2017-08-04 | CT71 ---
[facility] A Service of [facility] RADIOLOGY TEXT RESULTS PATIENT: INESSA RAMOS LOCATION: C2A : 30 UNIT #: [id number] AGE: [address]: Tone Hurst MD SEX: M ORDER DR: [id number] [facility] [address] [place], [place] [address] [id number] I MR#: [id number] Acc #: [id number] NAME: INESSA RAMOS : 1930 SEX: M STUDY DATE/TIME: 08/05/2017 UNIT: [facility] ROOM: 227 STUDY DESCRIPTION: CT Head Wo Contrast Attending Physician: Tone Hurst M.D. Ordering Physician: Esau Garsia M.D. Primary Care Physician: Nader Higgins M.D. MEDICAL IMAGING REPORT This report is preliminary unless electronic signature is present EXAM Head CT, 08/04 at 22:39. INDICATIONS Confusion today. TECHNIQUE FINDINGS Axial images were obtained from the base to the vertex without contrast. This CT exam was performed with one or more of the following radiation dose reduction techniques: automatic exposure control, adjustment of mA and/or kV according to patient size, and iterative reconstruction. COMPARISON STUDIES Comparison made with 07/18/2017. FINDINGS Again seen is generalized atrophy. Ventricular size and configuration are stable. Chronic small vessel ischemic changes are present in the white matter. No acute infarct or hemorrhage is seen. There are no new masses. Atherosclerotic calcifications are present in the carotid siphons. No skull fractures. IMPRESSION No acute intracranial findings. No significant interval change. Dictated by... Vik Bello Jr., M.D. THIS IS AN ELECTRONICALLY VERIFIED REPORT Vik Bello Jr., M.D. at 08/06/2017 4:14 AM BRENK/cammie [facility] A Service of [facility] RADIOLOGY TEXT RESULTS PATIENT: INESSA RAMOS LOCATION: C2A : 30 UNIT #: [id number] AGE: [address]: Tone Hurst MD SEX: M ORDER DR: TD: 08/05/2017 22:22 JOB #: [id number] MEDICAL IMAGING REPORT Page 1 of 1 COPY
--- NOTE | ~2017-08-04 | EKG ---
PATIENT: INESSA RAMOS UNIT #: [id number] Ventricular Rate: 61 BPM Atrial Rate: 61 BPM P-R Interval: 204 ms QRS Duration: 198 ms Q-T Interval: 494 ms QTC Calculation(Bezet): 497 ms Calculated R [place]: -80 degrees Calculated T [place]: 86 degrees Diagnosis Line: AV dual-paced rhythm Diagnosis Line: Abnormal ECG Diagnosis Line: When compared with ECG of 04-AUG-2017 21:33, Diagnosis Line: (unconfirmed) Diagnosis Line: No significant change was found Diagnosis Line: Confirmed by LEONARDA MARSHALL MD ([id number]) on 08/06/2017 Diagnosis Line: 11:03:24 PM INTERPRETING MD: ROLANDO BERGERON
--- NOTE | ~2017-08-04 | CR72 ---
[facility] A Service of [facility] RADIOLOGY TEXT RESULTS PATIENT: INESSA RAMOS LOCATION: A : 30 UNIT #: [id number] AGE: [address]: Tone Hurst MD SEX: M ORDER DR: [id number] [facility] [address] [place], [place] [address] [id number] I MR#: [id number] Acc #: [id number] NAME: INESSA RAMOS : 1930 SEX: M STUDY DATE/TIME: 08/04/2017 21:22 UNIT: [facility] STUDY DESCRIPTION: CR Chest Single View Portable Attending Physician: Tone Hurst M.D. Ordering Physician: Esau Garsia M.D. Primary Care Physician: Nader Higgins M.D. MEDICAL IMAGING REPORT This report is preliminary unless electronic signature is present EXAM Portable chest x-ray, 08/04/2017. HISTORY Cough, J-tube leakage. Possible infection. Mild congestion, 1 week. Patient completely incoherent. History of pancreas cancer. TECHNIQUE AP radiograph of the chest is presented. COMPARISON 07/28/2017. FINDINGS Interval removal of right upper extremity approach PICC. Left-sided cardiac pacemaker unchanged. Stable cardiac enlargement. Lung volumes slightly lower than on prior examination. Pulmonary vasculature shows new prominence greater than anticipated for the slightly lower lung volumes and suggesting moderate underlying vascular congestion. Generalized increased linear interstitial prominence in the [id number] lung zones. Some patchy airspace densities at the right lung base and relatively dense opacification of the left lower lung zone probably reflecting both airspace disease and left pleural effusion. Findings suggest moderate pulmonary edema with interstitial basilar airspace and left pleural space involvement. Probably cardiogenic etiology given the cardiac enlargement. No acute-appearing bony abnormality. Dictated by... Edgar Huynh M.D. THIS IS AN ELECTRONICALLY VERIFIED REPORT [facility] A Service of [facility] RADIOLOGY TEXT RESULTS PATIENT: INESSA RAMOS LOCATION: A : 30 UNIT #: [id number] AGE: [address]: Tone Hurst MD SEX: M ORDER DR: Edgar Huynh M.D. at 08/05/2017 10:01 PM YORDY/cammie TD: 08/05/2017 20:59 JOB #: [id number] MEDICAL IMAGING REPORT Page 1 of 1 COPY
--- NOTE | ~2017-08-04 | CT2 ---
[facility] A Service of [facility] RADIOLOGY TEXT RESULTS PATIENT: INESSA RAMOS LOCATION: C2A 227-01 : 30 UNIT #: [id number] AGE: [address]: Tone Hurst MD SEX: M ORDER DR: [id number] [facility] [address] [place], [place] [address] [id number] I MR#: [id number] Acc #: [id number] NAME: INESSA RAMOS : 1930 SEX: M STUDY DATE/TIME: 08/04/2017 22:41 UNIT: C2A ROOM: 227 STUDY DESCRIPTION: CT Abd and Pelv W Cont Attending Physician: Tone Hurst M.D. Ordering Physician: Esau Garsia M.D. Primary Care Physician: Nader Higgins M.D. MEDICAL IMAGING REPORT This report is preliminary unless electronic signature is present EXAM CT scan of the abdomen and pelvis with contrast. INDICATIONS J-tube leakage and fever. Abdomen pain today. COMPARISON No comparison. TECHNIQUE Axial 5 mm images were obtained through the abdomen and pelvis with IV contrast. The patient was given 100 mL of Isovue 370. This CT exam was performed with one or more of the following radiation dose reduction techniques: automatic exposure control, adjustment of mA and/or kV according to patient size, and iterative reconstruction. FINDINGS There are moderate left greater than right fusions with left greater than right basilar atelectasis. There are small bubbles of air in the anterior abdominal cavity. The patient has some skin jluis and apparently has had recent surgery. The liver, spleen, pancreas, adrenal glands and kidneys are normal, except for a right renal cyst measuring a centimeter in diameter. I believe the gallbladder is still present. A J-tube is present. There is no fluid collection around it. It is in good position. The bowel is normal except for inspissated fecal material seen in the rectum. It measures up to 8.5 cm in transverse dimension. The bladder and prostate gland are normal. There is some type of penile prosthesis present or ureteral stent present. Bones show mild degenerative changes. IMPRESSION 1. J-tube appears to be in good position, and there is no visible fluid collection around it as it passes through the abdominal wall. [facility] A Service of [facility] RADIOLOGY TEXT RESULTS PATIENT: INESSA RAMOS LOCATION: C2A 227-01 : 30 UNIT #: [id number] AGE: [address]: Tone Hurst MD SEX: M ORDER DR: 2. There are skin jluis running down the abdomen suggesting the patient had recent surgery and less likely the cause of the small amount of free air visible in the upper abdomen. 3. Inspissated fecal material is present throughout the colon including the rectum with distention of the rectum. 4. The appendix is normal. 5. Moderate left greater than right effusions with left greater than right basilar atelectasis. Dictated by... Louie Franco M.D. THIS IS AN ELECTRONICALLY VERIFIED REPORT Louie Franco M.D. at 08/07/2017 8:50 AM ABBIE/cammie TD: 08/05/2017 22:26 JOB #: [id number] MEDICAL IMAGING REPORT Page 1 of 1 COPY
[~2017-08-04 18:30] MED LIST changes: +HYDRALAZINE HCL25 MG PO; +HYDROXYZINE PAM25 M1 PO; +MELATIN3 MG PO
[2017-08-04 20:39] LABS: BASOPHIL# 0.1 X10e3 (0-0.3); EOSINOPHIL# 0.1 X10e3 (0-0.7); EOSINOPHIL% 1.6 % (0.0-7.0); HEMATOCRIT 21.9 % (38.0-50.0); HEMOGLOBIN 7.2 gm/dL (13.0-16.0); LYMPHOCYTE# 0.9 X10e3 (1.0-3.5); LYMPHOCYTE% 17.3 % (17.0-45.0); MEAN CELL VOLUME 76.6 FL (83-96); MEAN CORPUSCULAR HEMOGLOBIN 25.3 PG (28-34); MONOCYTE# 0.9 X10e3 (0-1.0); MONOCYTE% 17.5 % (3.0-12.0); NEUTROPHIL# 3.3 X10e3 (1.5-7.1); NEUTROPHIL% 62.6 % (40-75); PLATELET COUNT 240 X10e3 (140-420); RED BLOOD COUNT 2.86 X10e (3.90-5.60); RED CELL DISTRIBUTION WIDTH 16.9 % (11.0-15.5); WHITE BLOOD COUNT 5.3 X10e3 (4.0-10.5)
[2017-08-04 20:49] LABS: DIFF IND YES
[2017-08-04 20:52] LABS: INR 1.1; PARTIAL THROMBOPLASTIN TIME 32.2 SECONDS (23.5-31.3); PROTHROMBIN TIME (PATIENT) 11.9 SECONDS (10.0-11.7)
[2017-08-04 20:53] LABS: BILIRUBIN, DIRECT 0.1 mg/dL (0.0-0.2); BILIRUBIN,INDIRECT 0.4 mg/dL (0.0-0.9); BILIRUBIN,TOTAL 0.5 mg/dL (0.2-2.0); CALCIUM SERUM 7.7 mg/dL (8.4-10.2); GLOM FILT RATE Estimated 78.1 mL/min (>60); POTASSIUM 3.9 mmol/L (3.5-5.1)
[2017-08-04 21:08] LABS: PLATELET ESTIMATE NORMAL (NORMAL)
[2017-08-04 21:09] LABS: HYPOCHROMIA SL; MICROCYTOSIS SL
[2017-08-04 22:21] LABS: URINE SOURCE CLEAN CATCH
[2017-08-04 22:27] LABS: POC - CKMB <1.0 ng/mL (0.0-7.9); POC - TROPONIN <0.05 ng/mL (<=0.05)
[2017-08-04 22:32] LABS: POC - CKMB <1.0 ng/mL (0.0-7.9); POC - TROPONIN <0.05 ng/mL (<=0.05)
[2017-08-04 22:33] LABS: URINE APPEARANCE CLEAR; URINE BILIRUBIN NEG (NEG); URINE BLOOD NEG (NEG); URINE COLOR YELLOW; URINE GLUCOSE NEG (NEG); URINE KETONE NEG (NEG); URINE LEUKOCYTE ESTERASE NEG (NEG); URINE NITRATE NEG (NEG); URINE PROTEIN NEG (NEG)
[2017-08-04 22:39] LABS: CULTURE INDICATED? NO
[2017-08-04] MEDS ORDERED: NORVASC JT (23:22)
[2017-08-04] MEDS ORDERED: CATAPRES-TTS-10.1 M1 TD (23:22)
[2017-08-04] MEDS ORDERED: LISINOPRIL2.5 MG JT (23:24)
[2017-08-04] MEDS ORDERED: FOLIC ACID1 MG JT (23:24)
[2017-08-04] MEDS ORDERED: CLIMARA 0.1 MG0.1 MG EXT (23:24)
[2017-08-04] MEDS ORDERED: HYDRALAZINE HCL25 MG JT (23:25)
[2017-08-04] MEDS ORDERED: VALPROIC A250 MG/51 JT (23:28)
[2017-08-04] MEDS ORDERED: TYL325 JT (23:29)
[2017-08-04] MEDS ORDERED: NITROGLYCERIN0.4 MG SL (23:31)
[2017-08-04] MEDS ORDERED: JEVITY 1.5 CAL237 ML JT (23:33)
[2017-08-05 05:28] LABS: BASOPHIL% 0.9 % (0-2.5); EOSINOPHIL# 0.1 X10e3 (0-0.7); EOSINOPHIL% 2.5 % (0.0-7.0); HEMATOCRIT 26.9 % (38.0-50.0); LYMPHOCYTE# 0.9 X10e3 (1.0-3.5); LYMPHOCYTE% 15.9 % (17.0-45.0); MEAN CELL VOLUME 78.4 FL (83-96); MEAN CORPUSCULAR HEMOGLOBIN 26.3 PG (28-34); MEAN CORPUSCULAR HGB CONC 33.5 g/dL (30-36); MEAN PLATELET VOLUME 6.9 FL (6.5-11.5); MONOCYTE# 1.1 X10e3 (0-1.0); MONOCYTE% 19.5 % (3.0-12.0); NEUTROPHIL# 3.4 X10e3 (1.5-7.1); NEUTROPHIL% 61.2 % (40-75); PLATELET COUNT 239 X10e3 (140-420); RED BLOOD COUNT 3.43 X10e (3.90-5.60); RED CELL DISTRIBUTION WIDTH 17.3 % (11.0-15.5); WHITE BLOOD COUNT 5.6 X10e3 (4.0-10.5)
[2017-08-05 05:29] LABS: DIFF IND NO
[2017-08-05 06:04] LABS: CALCIUM SERUM 7.8 mg/dL (8.4-10.2); GLOM FILT RATE Estimated 78.1 mL/min (>60); POTASSIUM 4.2 mmol/L (3.5-5.1)
[2017-08-05 15:35] LABS: HEMATOCRIT 29.3 % (38.0-50.0)
[2017-08-06 05:20] LABS: BASOPHIL% 0.7 % (0-2.5); EOSINOPHIL# 0.3 X10e3 (0-0.7); EOSINOPHIL% 4.3 % (0.0-7.0); HEMATOCRIT 29.7 % (38.0-50.0); HEMOGLOBIN 10.2 gm/dL (13.0-16.0); LYMPHOCYTE# 1.1 X10e3 (1.0-3.5); LYMPHOCYTE% 16.2 % (17.0-45.0); MEAN CELL VOLUME 79.5 FL (83-96); MEAN CORPUSCULAR HEMOGLOBIN 27.2 PG (28-34); MEAN CORPUSCULAR HGB CONC 34.2 g/dL (30-36); MONOCYTE# 1.1 X10e3 (0-1.0); MONOCYTE% 16.5 % (3.0-12.0); NEUTROPHIL# 4.3 X10e3 (1.5-7.1); NEUTROPHIL% 62.3 % (40-75); PLATELET COUNT 247 X10e3 (140-420); RED BLOOD COUNT 3.73 X10e (3.90-5.60); RED CELL DISTRIBUTION WIDTH 17.8 % (11.0-15.5); WHITE BLOOD COUNT 6.8 X10e3 (4.0-10.5)
[2017-08-06 05:23] LABS: DIFF IND NO
[2017-08-06 06:24] LABS: BUN/CREATININE RATIO 33.75; CREATININE SERUM 0.8 mg/dL (0.6-1.4); GLOM FILT RATE Estimated 93.1 mL/min (>60); POTASSIUM 4.3 mmol/L (3.5-5.1)
== END 2017-08-06 14:23 ==
LOC: CED 18:30 → CEDOF 23:58 → CED 08-05 00:17 → CEDOF 08-05 00:17 → C4C 08-05 01:33 → C2A 08-05 18:19
PROVIDERS: Emergency Medicine; Family Medicine; Internal Medicine
DX: D50.9 Iron deficiency anemia, unspecified (principal); F03.90 Unspecified dementia, unspecified severity, without behavioral disturbance, psychotic disturbance, mood disturbance, and anxiety; F91.9 Conduct disorder, unspecified; I73.9 Peripheral vascular disease, unspecified; I12.9 Hypertensive chronic kidney disease with stage 1 through stage 4 chronic kidney disease, or unspecified chronic kidney disease; N18.4 Chronic kidney disease, stage 4 (severe); C61 Malignant neoplasm of prostate; K21.9 Gastro-esophageal reflux disease without esophagitis; M62.3 Immobility syndrome (paraplegic); R63.0 Anorexia; Z95.0 Presence of cardiac pacemaker; Z85.46 Personal history of malignant neoplasm of prostate; Z79.899 Other long term (current) drug therapy
CPT/HCPCS: 36415; 36430; 70450; 71010; 74177; 80048; 80076; 81003; 82553; 83605; 83880; 84484; 85014; 85018; 85025; 85610; 85730; 86850; 86900; 86901; 86923; 87040; 87070; 87076; 87205; 93005; 99285; G0378; J3370; P9016; Q9967